=== PATIENT | female | born 1955 | race Caucasian/White ===

== ENCOUNTER → 2019-03-22 10:40 | Outpatient (CLI) | payer OTHER, SELFPAY ==
--- NOTE | 2019-03-22 | DI.MRI.S_ITS ---
PROCEDURE: MR KNEE RT WO CON INDICATIONS: RIGHT KNEE PAIN TECHNIQUE: Noncontrast sagittal PD fast spin echo and T2 fast spin echo with fat saturation, sagittal 3-D FLASH with fat saturation; coronal T1 spin echo and PD fast spin echo with fat saturation, and axial PD fast spin echo with fat saturation through the knee. COMPARISON: [facility] Naveed, MR, MR DANIELLEAIRKeira RT KNEE, 09/01/2018, 9:52. [facility] [place]ra [place], CR, XR KNEE ARTHRITIC SERIES BI, 03/08/2019, 16:09. FINDINGS: Image quality: Excellent. Menisci: Medial extrusion of the medial meniscus is present. Linear and amorphous high signal intensity traverses the anterior and posterior horns of the medial meniscus, demonstrating superior and inferior articular surface extension, as before, indicating complex tearing. Previously seen linear high signal intensity within the anterior horn lateral meniscus is not well-seen on the current examination. Perimeniscal cyst at the anterior aspect of the lateral meniscus is unchanged. Cruciate ligaments: Moderate T2 signal elevation within the anterior and posterior cruciate ligaments is unchanged. Medial structures: The medial collateral ligament appears intact. Visualized portions of the pes anserinus tendons appear normal. No abnormal bursal fluid. Lateral structures: The lateral collateral ligament, long and short heads of the biceps femoris tendon appear intact. The popliteus tendon appears normal. Iliotibial band appears normal. Anterior structures: The quadriceps and patellar tendons appear intact. Patellar alignment is normal. No femoral trochlear dysplasia or ventral trochlear prominence. Moderate edema in the infrapatellar fat pad. Bones and cartilage: No bone marrow contusions or fractures. There is moderate tricompartmental periarticular osteophyte formation, as before. Subchondral degenerative marrow edema and subchondral cyst formation within the weightbearing aspects of the medial femoral condyle and medial tibial plateau is unchanged. Severe diffuse articular cartilage loss overlies the weightbearing aspects of the medial femoral condyle and medial tibial plateau. Mild diffuse articular cartilage loss overlies the medial and lateral patellar facets. Joint space: There is a moderate knee joint effusion and a trace Negrete's cyst. Normal appearing synovial plicae are incidentally noted. IMPRESSION: 1. Tricompartment osteoarthritis with associated articular cartilage loss. 2. Complex tearing and extrusion of the medial meniscus. 3. Previously seen anterior horn lateral meniscal tearing is not well-seen on the current examination. However, there is a persistent adjacent perimeniscal cyst, suggestive of an occult underlying tear. 4. Partial-thickness tears of the anterior and posterior cruciate ligaments. 5. Knee joint effusion and Negrete's cyst. Dictated by: Judy Jewell M.D. on 03/22/2019 at 11:04 Approved by: Judy Jewell M.D. on 03/22/2019 at 11:12
== END ==
PROVIDERS: PCP Nurse Practitioner Family; Visit Provider Orthopaedic Surgery
DX: M25.561 Pain in right knee (principal); M17.11 Unilateral primary osteoarthritis, right knee; S83.231A Complex tear of medial meniscus, current injury, right knee, initial encounter; S83.511A Sprain of anterior cruciate ligament of right knee, initial encounter; S83.521A Sprain of posterior cruciate ligament of right knee, initial encounter; M25.461 Effusion, right knee; M71.21 Synovial cyst of popliteal space [Baker], right knee
CPT/HCPCS: 73721

== ENCOUNTER → 2019-05-10 12:06 | Outpatient (CLI) | payer OTHER, SELFPAY ==
[2019-05-10 12:43] LABS: Mean Corpuscular HGB Conc 34.1 % (30-36); Mean Corpuscular Hemoglobin 30.8 PG (26-34); Mean Corpuscular Volume 90.5 fL (80-100); Platelet Count 201 X10^3/uL (150-400); Red Blood Cell Count 4.53 X10^6/uL (4.0-5.2); White Blood Cell Count 4.7 X10^3/uL (4.5-11.0)
[2019-05-10 12:56] LABS: Hemoglobin A1C% w Est Avg Glu 5.3 % (4.0-6.0)
[2019-05-10 13:10] LABS: Appearance Urine UA CLEAR; Bilirubin Urine UA NEGATIVE (NEGATIVE); Color Urine UA YELLOW; Glucose Urine UA NEGATIVE (Negative); Ketones Urine UA NEGATIVE (NEGATIVE); Leukocyte Esterase Urine UA 1+ (NEGATIVE); Nitrite Urine UA POSITIVE (Negative); Occult Blood Urine UA TRACE-INTACT (Negative); Protein Urine UA NEGATIVE (Negative); Urobilinogen Urine UA 0.2 E.U./dL (0.2)
[2019-05-10 13:17] LABS: Bacteria Urine Many (>30); Calcium Oxalate Crystals Urine Few; RBC Urine 5-10/HPF (0-5/HPF); Squamous Epithelial Cell Urine 1-5 /HPF (0-5/HPF); WBC Urine 10-30/HPF (0-5/HPF)
[2019-05-10 13:32] LABS: BUN Creatinine Ratio 28.3 (6-22); Blood Urea Nitrogen 17 mg/dL (7-17); Calcium 9.7 mg/dL (8.4-10.2); Carbon Dioxide 22 mmol/L (22-32); Chloride 106 mmol/L (98-107); Estimated Glomerular Filt Rate > 60.0 mL/min (>60); Glucose 129 mg/dL (80-110); HEMOLYSIS < 15 (0-50); Potassium 4.3 mmol/L (3.4-5.1); Sodium 140 mmol/L (137-145)
== END ==
PROVIDERS: Family Provider Nurse Practitioner Family; PCP Nurse Practitioner Family; Visit Provider Orthopaedic Surgery
DX: N39.0 Urinary tract infection, site not specified (principal); R73.9 Hyperglycemia, unspecified; Z01.818 Encounter for other preprocedural examination
CPT/HCPCS: 36415; 80048; 81001; 83036; 85027; 93005; 93010

== ENCOUNTER 2019-06-09 14:33 | Observation (INO) | payer OTHER, SELFPAY ==
[2019-05-29 14:03] VITALS: BMI 32.0
[2019-06-08] VITALS (18 sets, daily range): BP systolic 101–148; BP diastolic 59–81; PULSE 56–80; RESP 10–16; TEMP 36–36.7; O2SAT 90–99; BMI 32.0
--- NOTE | 2019-06-08 06:00 | DI.RAD.S_ITS ---
PROCEDURE: XR KNEE RT 1TO2V INDICATIONS: total knee post operative TECHNIQUE: 2 view(s) of the knee acquired. COMPARISON: None. FINDINGS: Bones: Patient is status post knee joint arthroplasty. Hardware components are in expected positions. Visualized bony structures are intact. Soft tissues: Overlying postoperative changes are noted. IMPRESSION: Right knee total arthroplasty with prosthesis in anatomic alignment. Dictated by: Brayan Tirado M.D. on 06/08/2019 at 17:14 Approved by: Brayan Tirado M.D. on 06/08/2019 at 17:14
[2019-06-08] MEDS: LACTATED RINGERS 1,000 ML 42 ML IV ×3 (09:20→13:07)
[2019-06-08] MEDS: VANCOMYCIN 1,000 MG/200 ML PIGGYBACK 200 MG IV (09:28)
[2019-06-08] MEDS: PREGABALIN 75 MG CAPSULE PO (09:32)
[2019-06-08] MEDS: ACETAMINOPHEN 325 MG TABLET 975 MG PO ×3 (09:32→20:52)
[2019-06-08] MEDS: CELECOXIB 200 MG CAPSULE PO (09:32)
--- NOTE | 2019-06-08 10:36 | PM.PREOP ---
Pre-operative Note Interval Note History & Physical reviewed/Exam performed by Physician: Yes Changes to H&P: No
--- NOTE | 2019-06-08 10:36 | PM.OP.1 ---
Operative Date/Time/Diagnoses Date of procedure: 06/08/19 Time of procedure: 10:55 Pre-op diagnosis: right knee OA Post-op diagnosis: same Procedure & Clinicians Procedure: Right total knee arthroplasty Same procedure as scheduled: Yes Indications: The patient has had progressively worsening right knee pain with radiographic changes consistent with arthritis. Non-operative management has failed and the patient has requested total knee replacement. The risks, benefits and alternatives to surgery were discussed with the patient prior to proceeding. Risks discussed included, but were not limited to, failure to relieve pain, stiffness, infection, nerve damage, deep venous thrombosis, pulmonary embolism, stroke, coma, heart attack, permanent paralysis and , as well as the potential need for eventual revision of the prosthetic. Surgeon: Patito Yañez Impregnator Electrolytic Capacitors: Eve Cole Anesthesia Type: General and Spinal Operative Notes Findings: Severe right knee osteoarthritis, adequate stability Closure Type: primary Prosthetic devices, grafts, tissues, transplants, or devices: Yañez and Nephew Journey BCS 2 size 2 femur, 1 tibia, +9 poly, patella 32 by 7.5 Applied: drain(s) Estimated Blood Loss (mL): 250 Blood products transfused: none Tourniquet time (min): 87 Procedure in detail: The patient was seen in the pre-operative area, where the patient identified the right knee as the operative site and this was marked with my initials. The patient received pre-operative antibiotics, and was taken to the operating room and placed on the operative table in the supine position. After satisfactory anesthesia, a full stack net developer out was performed. The right leg was encircled with a tourniquet about the proximal thigh, and the leg was prepared from the toes to the tourniquet with ChloroPrep in the usual fashion and draped through sterile drapes. The leg was elevated and exsanguinated with Eschmark bandage and the tourniquet inflated to [250] mmHg pressure. The knee was approached through an approximately 18 cm incision centered over the patella and carried into the knee through a medial parapatellar arthrotomy. A portion of the medial and lateral meniscus was resected. Soft tissue was carefully mobilized around the patella the patella was measured with a caliper. Bone was resected from the patella and the patellar height was reconstituted with up an appropriate sized patellar component. A cover was then placed on the patella. A small amount of additional medial and lateral meniscus was resected. The visionare guide fit well to the distal femur. It looked like an appropriate distal femoral cut and the cut was made without difficulty. The rotation was assessed and the appropriate size femoral guide was placed on the distal femur and finishing cuts were made. There is no evidence of notching. The anterior, posterior and chamfer cuts were then made. The posterior osteophytes and soft tissues were then removed. The posterior capsule was injected with part of a mixture of 60 ml 0.25% Marcaine mixed with 20 ml Exparel for post operative pain control. The remainder of this mixture was injected into the capsule and subcutaneous tissues during cement curing. The tibia was prepared and the visionaire guide fit well to the distal tibia. The rotation was assessed. The patient was placed in extension residual medial and lateral meniscus as well as any residual bone was carefully resected. [No] additional tibia was resected. Hemostasis was achieved especially posteriorly. Additional local was injected into the posterior capsule. The extension gap was assessed and additional releases for gap balancing were performed as necessary. It was checked with the gap lab rep. The femoral component was trial was placed and the notch was finished. Trial tibial and femoral components were then placed and the knee placed through a range of motion. Range of motion was [0-130], with good stability throughout the range. The trials were then removed, and the tibia was finished. She had a a very small canal on the tibia and it was drilled and punched with care. The bone was prepared with pulsatile lavage, and dried with a sponge. Cement was applied and the final prosthetics placed. Excess cement was removed during and after cement curing. A brief Betadine soak was performed. After confirming there was no extruded cement posteriorly, the final tibial insert was placed. The knee was copiously irrigated and the tourniquet deflated. Hemostasis was obtained with the Bovie. A drain was placed and brought out superolaterally. The capsule was closed with interrupted Vicryl suture. The subcutaneous layer was closed with barbed sutures, and the skin with a running 3-0 V-Lock suture and Surgical glue. An Aquacel Ag dressing was applied and the patient was taken to recovery having tolerated the procedure well. Complications: none Post-operative Condition: stable Disposition: Acute Care Plan for aftercare: The patient will be maintained on a standard total knee replacement protocol with weight bearing as tolerated. The patient will receive Lovenox and sequential compression devices for DVT prophylaxis. The patient will be discharged home when safe for the home environment.
[2019-06-08] MEDS: CEFAZOLIN 2 GM/100 ML FROZ.PIGGY IV ×2 (10:55→19:18)
--- NOTE | 2019-06-08 11:31 | SUR.OPER ---
Supine on padded OR bed. Pillow under head, arms secured on padded armboards <90 degree abduction. Safety belt across torso. Non-operative leg secured with tape over blanket over lower leg. Operative leg secured in DeMayo/Anthony positioner. Foam padded brace at thigh of operative leg.
[2019-06-08] MEDS: BUPIVACAINE LIPOSOME 266 MG/20 ML VIAL INJ (11:40)
[2019-06-08] MEDS: BUPIVACAINE 0.25% W/ EPI 30 ML VIAL 60 ML INJ (11:40)
[2019-06-08] MEDS: HYDROMORPHONE 2 MG INJ 0.25 MG IV ×3 (13:53→14:14)
--- NOTE | 2019-06-08 13:56 | SUR.PHASEI ---
Unclamp HV [address] Yañez.
--- NOTE | 2019-06-08 14:01 | SUR.PHASEI ---
Pt rated pain 9-10/10 and then fell asleep.
--- NOTE | 2019-06-08 14:39 | SUR.PHASEI ---
Report called to Giorgio.
--- NOTE | 2019-06-08 15:41 | PC.NURSE ---
Patient arrived just prior to change of shift, settled into bed, oriented to room and call light. VSS. Tolerating ice chips. Right knee with DEBRA and Aquacel CDI, patient with good pulses bilaterally. Bed alarm activated, call light within reach.
[2019-06-08] MEDS: ONDANSETRON 4 MG/2 ML INJ IV ×2 (16:16→21:03)
[2019-06-08] MEDS: LACTATED RINGERS 1,000 ML 125 ML IV (16:16)
[2019-06-08] MEDS: OXYCODONE IR 5 MG TABLET PO ×2 (17:48→20:54)
[2019-06-08] MEDS: LOVASTATIN 20 MG TABLET PO (18:15)
[2019-06-08] MEDS: DOCUSATE 100 MG CAPSULE PO (20:53)
[2019-06-08] MEDS: FLUoxetine 20 MG CAPSULE PO (20:53)
[2019-06-08] MEDS: ASPIRIN EC 81 MG TABLET PO (20:53)
[2019-06-08] MEDS: CYCLOBENZAPRINE 10 MG TABLET 5 MG PO (20:54)
[2019-06-09] VITALS (9 sets, daily range): BP systolic 96–152; BP diastolic 58–80; PULSE 59–86; RESP 16–20; TEMP 36.2–36.9; O2SAT 88–97
[2019-06-09] MEDS: LACTATED RINGERS 1,000 ML 125 ML IV (00:14)
--- NOTE | 2019-06-09 00:21 | PC.NURSE ---
Addendum entered by Kizzy Willard R.N. 06/09/19 02:21: Complains of 6/10 sharp right knee/thigh pain; medicated with Oxycodone. Original Note: Patient is alert and oriented. Breath sounds diminished but CTA with RA sat of 94%; on continuous oximetry. HRR but with low BP of 97/63; asymptomatic. Still with slight nausea but declines need for antiemetic. BT hypoactive; denies flatus. Up to BSC with 1 assist + walker; weak on right LE. Aquacel + jose wrap to right knee is CDI. Hemovac is compressed and intact. CMS intact bilaterally. Wearing calf SCD's. Denies pain but complains of stiffness; ice pack applied. Fall risk score is moderate; reports tripping but last fall in October. Bed alarm is activated and patient reminded to call for assistance prior to getting up.
[2019-06-09] MEDS: OXYCODONE IR 5 MG TABLET PO ×4 (02:18→12:27)
[2019-06-09] MEDS: CEFAZOLIN 2 GM/100 ML FROZ.PIGGY IV (02:21)
[2019-06-09 07:08] LABS: Hematocrit 33.1 % (36-46); Hemoglobin 11.6 g/dL (12.0-16.0)
[2019-06-09] MEDS: FLUoxetine 20 MG CAPSULE 40 MG PO (08:12)
[2019-06-09] MEDS: DOCUSATE 100 MG CAPSULE PO ×2 (08:12→20:02)
[2019-06-09] MEDS: PANTOPRAZOLE 20 MG TABLET PO (08:12)
[2019-06-09] MEDS: ACETAMINOPHEN 325 MG TABLET 975 MG PO ×3 (08:12→20:02)
[2019-06-09] MEDS: ASPIRIN EC 81 MG TABLET PO ×2 (08:59→20:01)
--- NOTE | 2019-06-09 09:12 | PM.PNPO.1 ---
Subjective Subjective Date Patient Seen: 06/09/19 Time Patient Seen: 09:12 Interval history: Hospital day 2, postop day 1 following right total knee arthroplasty by Dr. Yañez. She has remained stable postoperatively. She did have some nausea last night but that has resolved. She has not had any physical therapy yet. Hemovac in place with 70 mL discharge past 8 hours. She is a [facility] patient and has prescriptions at home for oxycodone and Vistaril. She is scheduled go to [facility]. Patient lives in a single wide mobile home with her . She is concerned about how much help her will be to her when she gets home. She also has a caregiver for her elderly mother and a disabled daughter who live in separate housing. Exam Vital Signs (past 8 hours): - 06/09/19 05:30 06/09/19 08:32 Temperature 97.4 F L 97.9 F Pulse Rate 66 75 Respiratory Rate 16 18 Blood Pressure 128/58 L 120/67 Pulse Oximetry 97 95 Oxygen Delivery Method Room Air Oxygen Flow Rate 0 Narrative Exam Narrative: Alert, oriented no acute distress lying in bed. Legs. Faustino wrap an Aquacel dressing to right knee is dry without drainage or inflammation. Hemovac in place. No calf pain or swelling. Pulses symmetrical. Patient also seen by Dr. Yañez during rounds this morning. Objective Labs Result Diagrams: 06/09/19 06:45 Labs: Laboratory Results - last 24 hr 06/09/19 06:45 Hgb 11.6 L Hct 33.1 L Assessment & Plan Post-op Postoperative Procedures: Procedures Operation Date: 06/08/19 10:45 Actual Procedures Side Surgeon p Total Knee Arthroplasty Patito Yañez MD Plan: After further discussion with the patient it was decided that we would have her stay in the hospital today for further recovery and physical therapy before going home. Will try to have her come in to work with PT. Anticipate discharge home tomorrow if she is stable and cleared by PT.
--- NOTE | 2019-06-09 10:02 | PT.IIE ---
Current Diagnoses Unilateral primary osteoarthritis, right knee (06/08/19) Surgery Performed Operation Date: 06/08/19 10:45 Actual Procedures p Total Knee Arthroplasty - Patito Yañez MD Surgical History (Last Updated 05/29/19 @ 14:23 by Tabitha Perez, RN) History of bunionectomy of left great toe (Acute) History of section (Acute) Hx of appendectomy (Acute) Hx of arthroscopy of right knee (Acute) Hx of cholecystectomy (Acute ~1998) Hx of tonsillectomy (Acute) S/P thyroid biopsy (Acute ~2015) Status post trigger finger release (Acute) Medical History (Last Updated 05/29/19 @ 14:23 by Tabitha Perez RN) Anxiety (Acute) Arthritis (Acute) Enlarged thyroid (Acute ~2015) GERD (gastroesophageal reflux disease) (Acute) H/O: hysterectomy (Acute) Hammertoe of left foot (Acute) HLD (hyperlipidemia) (Acute) Kidney stones (Acute) Numbness (Acute) Pneumonia (Acute) Physical Therapy Inpatient Evaluation/Re-Eval M1 PT/OT-IP Prior Functional Status Start: 06/09/19 12:19 Freq: NEEDED Status: Active Protocol: Document 06/09/19 10:02 AB (Rec: 06/09/19 12:33 AB [email or web address]) Medical Review Prior Functional Status Medical History Reviewed Yes Communication able to make needs known Mobility and Gait pt stated that she is independent with all mobilities and ambulation without AD Social History Household Members spouse Living Arrangements Mobile home Number of Floors (Floors) One Floor Number of Stairs To Enter/Railing? 6 steps to enter with R rail ascending Home Environment Standard Height Toilet,Tub/ Shower Home Equipment Front Wheel Walker,Shower Seat without Backrest,Hand Held Shower Additional Social History Comment pt also has a hurrycane M2 PT-IP Current Condition Start: 06/09/19 12:19 Freq: NEEDED Status: Active Protocol: Document 06/09/19 10:02 AB (Rec: 06/09/19 12:33 AB [email or web address]) Physical Therapy Current Condition Current Condition Evaluation Date 06/09/19 Treatment Diagnosis s/p R TKA; difficulty in walking Onset Date 06/08/19 Weight Bearing Status Weight Bearing Status Weight Bear as Tolerated M3 PT-IP Subjective Start: 09/06/19 12:19 Freq: NEEDED Status: Active Protocol: Document 06/09/19 10:02 AB (Rec: 06/09/19 12:33 AB [email or web address]) Subjective Physical Therapy Visit Type Type Initial Evaluation Visit Start Time 10:02 Visit Stop Time 10:38 Total Visit Minutes 36 Number of LEAD EMBEDDED SOFTWARE ENGINEER Visits 0 Physical Therapy Visit Comments Patient Comments pt agreeable to do PT Therapy Pain Assessment Pain When Pain Assessed At Rest Pain Present Pain Present Pain Reported Location Back Intensity 4 Scale Used Numeric (1 - 10) Pain Management Techniques Apply Cold,Re-positioning, Timing of Activity with Medications M4 PT-IP Mobility and Gait Start: 06/09/19 12:19 Freq: NEEDED Status: Active Protocol: Document 06/09/19 10:02 AB (Rec: 06/09/19 12:33 AB [email or web address]) PT-Bed Mobility Assessment Supine to Sit Supine to Sit Standby Assistance PT-Transfer Assessment Sit to and From Stand Sit to and from Stand Contact Guard Assistance,1 Person Assistance,Use of Upper Extremities Equipment Transfer Assistive Device Gait Belt,Front Wheeled Walker Orthotic/Prosthetic Devices or Brace: No Transfers Transfer Destination Toilet Transfer Technique pt ambulated using FWW Transfer Ability Level of Assist Contact Guard Assistance,1 Person Assistance,Use of Upper Extremities Comments Mobility Comments pt ambulated to the toilet using FWW CGA. pt agreed to sit up on chair. refused further ambulation . positioned on chair. call light and table placed within reach. Gait Assessment Gait Gait Assistance Required: Contact Guard Assist Distance (Feet) 20 Able to Maintain Weight Bearing Status Yes During Gait Assistive Devices Assistive Device Gait Belt,Front Wheeled Walker Orthotic/Prosthetic Devices or Brace: No Gait Deviations General Gait Pattern Antalgic,Decreased Stride Length,Decreased Feet Clearance,Step-to Gait Factors Limiting Gait Function Factors Limiting Gait Function Decreased Activity Tolerance, Decreased Strength,Limited Range of Motion,Pain,Poor Balance,Poor Safety Awareness Comments Gait Comments pt completed ambulation using FWW ~ 20 ft requiring CGA and cues. pt presents with antalgic gait and has decrease activity tolerance and unable to do farther ambulation after using the toilet. pt requested to do stairs in the afternoon. PT-Balance Assessment Sitting Balance and Reactions Static Sitting Balance Ability Good Dynamic Sitting Balance Ability Good Standing Balance and Reactions Static Standing Balance Ability Fair Dynamic Standing Balance Ability Fair Device Used FWW M5 PT-IP Objective Assessments Start: 06/09/19 12:19 Freq: NEEDED Status: Active Protocol: Document 06/09/19 10:02 AB (Rec: 06/09/19 12:33 AB [email or web address]) Orientation Orientation/Cognition Level of Alertness Alert Orientation Name,Place,Situation Language Function Ability Hard of Hearing Safety Awareness Decreased Safety Awareness Memory Description Short Term Impaired Gross Range of Motion Lower Extremity ROM Assessment Right Impaired Impairments R knee flexion 90 de R knee extension lacking 15 deg to O Strength Lower Extremity Strength Assessment Right Impaired Knee 3+/5 Sensation Assessment Sensation Gross Sensation WNL Muscle Tone Muscle Tone WNL Yes M6 PT-IP Treatment Start: 06/09/19 12:19 Freq: NEEDED Status: Active Protocol: Document 06/09/19 10:02 AB (Rec: 06/09/19 12:33 AB [email or web address]) Physical Therapy Treatment Exercises Exercises Quad Sets,Heel Slides Education Education Provided Precautions,Weight Bearing Status,Post-Op Packet,Safety M7 PT-IP Assessment and Plan Start: 06/09/19 12:19 Freq: NEEDED Status: Active Protocol: Document 06/09/19 10:02 AB (Rec: 06/09/19 12:33 AB [email or web address]) PT Summary Assessment and Plan Potential Rehabilitation Potential Good Status of Condition at Evaluation Stable Summary Impairments Pain,ROM,Strength,Balance, Coordination,Sensation,Tone, Cognition,Bed Mobility, Transfers,Gait,Activity Tolerance Assessment Summary pt requiring CGA with mobility but presents with decrerase activity tolerance and c/o pain with mobility affecting function. d/c plan depends on progress. stated that spouse will be able to assist but is limited due to spouse's decrease cognitive/memory. will conducted caregiver training when appropriate and will also complete stair climbing training prior to d/c . Goals Bed Mobility Goal Independent Transfer Goal Independent,Front Wheeled Walker Gait Goal Independent,Front Wheel Walker Gait Distance 200 Other Goals up/down 6 steps with R rail ascending SBA Days to Meet Goals 5 Frequency of Treatment Frequency Of Treatment Twice a Day Treatment Plan Physical Therapy Treatment Plan Bed Mobility Training,Transfer Training,Gait Training, Therapeutic Exercise,Balance Retraining,Post Op Education, Discharge Planning,Hot or Cold Pack,Neuromuscular Re-ed, Coordination Retraining,Manual Therapy Other Recommendations and Next Treatment ambulation, stair climbing Focus Recommendations To Nursing Amount of Assist Needed 1 Person Assist Discharge Recommendations PT Discharge Recommendations Home with Assistance, Outpatient PT
--- NOTE | 2019-06-09 14:19 | CM.DPNOTE ---
Initial discharge planning note: GREY GOODS EXAMINER reviewed chart and met with patient. PCP: Meri Blackman. Payor:mattie Pal of [facility]. Medicare Advantage. Pt found to be alert, oriented and comfortable. Current d/c plan is for her to spend one more night inpt, due to further recovery and more PT. She has a solid plan in place at home to ensure that she will be able to manage her care needs. If she finds that her spouse need's additional support, she already has 2-caregivers in mind that she can call. No DME needs, [facility] is already lined up for continued outpatient based therapy. No further needs identified at this time Discharge Planning/Care Management CM Discharge Assessment Start: 06/09/19 14:04 Freq: Status: Active Protocol: Document 06/09/19 14:05 DPL (Rec: 06/09/19 14:12 DPL [id number]) Discharge Planning Assessment Assigned Coal Pipeline Operator Aishwarya Wayne/Kalyn Peacock DPOA/Assigned Designee Name Pt designates her spouse, Kevin, as surrogate decision- maker. Advance Directives? No Advance Directives on File No History Provided By Patient Expected Length of Stay 2 Has Patient been admitted in last 30 No days? Prior Living Arrangements Mobile home Comment Pt resides w/. Her disabled dtr and elderly mother live in a separate dwelling, however patient is responsible for coordination and monitoring of their daily care needs. She shared that she was able to get increased hours through [employer] for both of them in anticipation of her need to heal from this knee surgery. Household Members spouse Type of transporation used prior to Drives own vehicle admit Independent with ADL's Yes Is patient alert and oriented? Yes Needs Assistance With Meal Prep,Home Chores / Shopping Comment Pt states that her spouse will be able to assist with her care needs at home with direction from her. She has a few caregivers in mind should she decide that she need's more help. Caregiver for Another Yes Comment N/A Comment N/A Patient/Family Preference OP PT Therapy Comment PT assessment recommends d/c home with assistance, outpatient PT. She has already been referred to [facility] . Barriers to Discharge No Discharge Plan Home Transportation Arrangement Spouse will plan to drive patient home. Pre-Anesthesia Assessment Start: 05/29/19 14:03 Freq: Status: Complete Protocol: Document 05/29/19 14:03 CAB (Rec: 05/29/19 14:44 [facility] [id number]) Pre-Anesthesia Assessment Patient Information Reviewed Via Phone Assessment Assessment Completed With Patient Diagnostic Results BMP/CMP,CBC,EKG Comment Labs/EKG @ 05/10/19 Prior EKG '18 scanned for comparison Primary Care Provider Meri Blackman Seen Specialist in Last 12 Months Yes Specialist Seen Orthopedist,Urologist Comment Last PCP note 09/05/18 scanned to record Primary Language [place] Order Processing Clerk Required No Height 144.78 cm Weight 67.132 kg Body Mass Index (BMI) 32.0 Hearing Ability Normal Visual Assist Glasses Dentition Type Partial- Upper Barriers to Learning None Other Aids No Hx Anesthesia Reactions No Hx Family Anesthesia Reaction No Hx Malignant Hyperthermia No Hx Blood Transfusions No Anesthesia Review Requested No alcohol intake never Smoking Status Never smoker Substance Use Type does not use Pain Present Pain Reported Musculoskeletal Symptoms Abnormal Gait,Difficulty Walking,Joint Pain,Muscle Cramps,Muscle Weakness, Numbness History of Falling (Recent or History of Yes ) Patient is completely paralyzed or No completely immobile Mental Status Oriented to own ability Is patient on oxygen? No Does patient have MANUEL/SOB Yes: With over exertion Hx Sleep Apnea No Currently Taking a Beta Henny No Hx Chest Pain No Hx SOB Yes: With over exertion Hx Syncope or Dizziness No Anti-Coagulant Therapy No Has a Classified Copy Control Clerk No Cardiac Testing Yes: Stress test 09/21/18 negative for ischemia Hx Pacemaker/ICD No Pacemaker Rep Required? No Cardiac Clearance Received Not Applicable Diet Type At Home Regular dysphagia No Bladder Pattern Incontinent, Stress Urinary Catheter Present No Hx Urinary Self Catheterization No Diabetes No HgbA1C 5.3 Date 05/10/19 Patient No Lactating No Hx Drug Resistant Organism No Presence of External or Internal Medical No Devices Have you traveled outside the [facility] States in the last 30 days? Marital Status Lives With spouse Prior Living Arrangements Mobile home Number of Floors (Floors) One Floor Support System Spouse Does the Patient Have Assistance After Yes Surgery Patient Discharge Plan Description Return Home Comment Pt advised overnight length of stay per surgeon Feels Safe in Current Environment Yes Been Physically Hurt or Threatened By a No Person in Current Environment Do you have thoughts of harming yourself None or others? Are you currently considering suicide? No Do you have a plan to hurt yourself or No Plan others? Do You Have Any Spiritual Beliefs That No May Affect Your HC Choices? Do You Have Any Cultural Practices That No May Affect Your HC Choices? Comment Jewish Who Can We Speak to About Patient's Care Family, friends Identifying Code for Release of Patient Declines to isuse Information Health Care Proxy/Next of Kin Uma (sister) Health Care Proxy Emergency Contact Name Kevin () Emergency Contact Advance Directives? No: Declines further information, has paperwork at home Advance Directives on File No Requested Patient Bring Advanced Yes Directives DOS Power of Supreme Court Justice No PAC Instructions Do not shave/clip surgical site,Durable medical equipment ,Medications to take/avoid, Nasal antibiotic,No ETOH/ petroleum product on skin DOS, NPO,Pre-surgical wash,Sturdy shoes/comfortable clothes,Do not bring valuables and remove jewelry
--- NOTE | 2019-06-09 14:50 | PT.IPTN ---
Current Diagnoses Unilateral primary osteoarthritis, right knee (06/08/19) Surgery Performed Operation Date: 06/08/19 10:45 Actual Procedures p Total Knee Arthroplasty - Patito Yañez MD Physical Therapy Treatment Note M2 PT-IP Current Condition Start: 06/09/19 12:19 Freq: NEEDED Status: Active Protocol: Document 06/09/19 10:02 AB (Rec: 06/09/19 12:33 AB [email or web address]) Physical Therapy Current Condition Current Condition Evaluation Date 06/09/19 Treatment Diagnosis s/p R TKA; difficulty in walking Onset Date 06/08/19 Weight Bearing Status Weight Bearing Status Weight Bear as Tolerated M3 PT-IP Subjective Start: 06/09/19 12:19 Freq: NEEDED Status: Active Protocol: Document 06/09/19 14:50 AB (Rec: 06/09/19 16:41 AB [email or web address]) Subjective Physical Therapy Visit Type Type Treatment Note Visit Start Time 14:50 Visit Stop Time 15:05 Total Visit Minutes 15 Number of CONSTRUCTION RECRUITER Visits 0 Physical Therapy Visit Comments Patient Comments pt agreeable to do PT Therapy Pain Assessment Pain When Pain Assessed At Rest Pain Present Pain Present Pain Reported Location Back Intensity 6 Scale Used Numeric (1 - 10) Pain Management Techniques Apply Cold,Re-positioning, Timing of Activity with Medications M4 PT-IP Mobility and Gait Start: 06/09/19 12:19 Freq: NEEDED Status: Active Protocol: Document 06/09/19 14:50 AB (Rec: 06/09/19 16:41 AB [email or web address]) PT-Bed Mobility Assessment Sit to Supine Sit to Supine Standby Assistance PT-Transfer Assessment Sit to and From Stand Sit to and from Stand Contact Guard Assistance Equipment Transfer Assistive Device Gait Belt,Front Wheeled Walker Transfers Transfer Destination Bed Transfer Technique pt ambulated using FWW Transfer Ability Level of Assist Contact Guard Assistance, Minimal Assistance Comments Mobility Comments pt sitting on chair and agreed to do ambulation but requested to go back to bed afterwards. pt completed sit to stand from the chair CGA and completed ambulation using FWW ~ 50 ft CGA to min A and cues. pt walked back to the room towards the bed and completed sit to supine SBA. positioned pt in bed. call light and table placed within reach. Gait Assessment Gait Gait Assistance Required: Contact Guard Assist,Minimum Assistance Distance (Feet) 50 Able to Maintain Weight Bearing Status Yes During Gait Assistive Devices Assistive Device Gait Belt,Front Wheeled Walker Orthotic/Prosthetic Devices or Brace: No Gait Deviations General Gait Pattern Antalgic,Decreased Stride Length,Decreased Feet Clearance Factors Limiting Gait Function Factors Limiting Gait Function Decreased Activity Tolerance, Decreased Strength,Limited Range of Motion,Pain,Poor Balance Stair Climbing Assessment Comments Stair Climbing Comments pt refused to do stair training today stating that she is not ready but agreed to do it tomorrow. M5 PT-IP Objective Assessments Start: 06/09/19 12:19 Freq: NEEDED Status: Active Protocol: Document 06/09/19 10:02 AB (Rec: 06/09/19 12:33 AB [email or web address]) Orientation Orientation/Cognition Level of Alertness Alert Orientation Name,Place,Situation Language Function Ability Hard of Hearing Safety Awareness Decreased Safety Awareness Memory Description Short Term Impaired Gross Range of Motion Lower Extremity ROM Assessment Right Impaired Impairments R knee flexion 90 de R knee extension lacking 15 deg to O Strength Lower Extremity Strength Assessment Right Impaired Knee 3+/5 Sensation Assessment Sensation Gross Sensation WNL Muscle Tone Muscle Tone WNL Yes M6 PT-IP Treatment Start: 06/09/19 12:19 Freq: NEEDED Status: Active Protocol: Document 06/09/19 10:02 AB (Rec: 06/09/19 12:33 AB [email or web address]) Physical Therapy Treatment Exercises Exercises Quad Sets,Heel Slides Education Education Provided Precautions,Weight Bearing Status,Post-Op Packet,Safety M7 PT-IP Assessment and Plan Start: 06/09/19 12:19 Freq: NEEDED Status: Active Protocol: Document 06/09/19 14:50 AB (Rec: 06/09/19 16:41 AB [email or web address]) PT Summary Assessment and Plan Potential Rehabilitation Potential Good Summary Impairments Pain,ROM,Strength,Balance, Coordination,Bed Mobility, Transfers,Gait,Activity Tolerance Progress Towards Goals Slow Progress due to Pain,Slow Progress due to Activity Tolerance Assessment Summary pt requiring CGA to min A with mobility but continues to have decrease activity tolerance with c/o increase knee pain. pt plans to go home with spouse to assist her . will conduct caregiver training when appropriate and will also complete stair training. Goals Bed Mobility Goal Independent Transfer Goal Independent,Front Wheeled Walker Gait Goal Independent,Front Wheel Walker Gait Distance 200 Other Goals up/down 6 steps with R rail ascending SBA Days to Meet Goals 5 Frequency of Treatment Frequency Of Treatment Twice a Day Treatment Plan Physical Therapy Treatment Plan Bed Mobility Training,Transfer Training,Gait Training, Therapeutic Exercise,Balance Retraining,Post Op Education, Discharge Planning,Hot or Cold Pack,Neuromuscular Re-ed, Coordination Retraining,Manual Therapy Other Recommendations and Next Treatment ambulation, stair climbing Focus Recommendations To Nursing Amount of Assist Needed 1 Person Assist Discharge Recommendations PT Discharge Recommendations Home with Assistance, Outpatient PT
[2019-06-09] MEDS: OXYCODONE IR 10 MG TABLET PO (16:20)
[2019-06-09] MEDS: LOVASTATIN 20 MG TABLET PO (17:56)
[2019-06-09] MEDS: HYDROMORPHONE 2 MG INJ IV (17:57)
[2019-06-09] MEDS: CYCLOBENZAPRINE 10 MG TABLET 5 MG PO (20:01)
[2019-06-09] MEDS: FLUoxetine 20 MG CAPSULE PO (22:54)
[2019-06-10] VITALS (7 sets, daily range): BP systolic 145–158; BP diastolic 83–88; PULSE 85–98; RESP 14–18; TEMP 36.6–37.2; O2SAT 94–100
[2019-06-10] MEDS: OXYCODONE IR 10 MG TABLET PO ×4 (03:32→20:16)
--- NOTE | 2019-06-10 04:11 | PC.NURSE ---
Pts hemovac is slightly out, air escaping. I placed tegaderm on the holes and tried to maintain suction. Working much better now. Re-wrapped and re-dressed site. New Kerlix applied. Pt was 88% on RA after receiving IV dilaudid a few hours prior. Placed on 2L NC and now at 95%. Pt is ambulating slow but well to the bathroom with FWW and 1p assist. Complained of 5/10 pain, Oxycodone 10mg given. bilateral SCDs on throughout night.
[2019-06-10] MEDS: ASPIRIN EC 81 MG TABLET PO ×2 (08:43→20:11)
[2019-06-10] MEDS: PANTOPRAZOLE 20 MG TABLET PO (08:43)
[2019-06-10] MEDS: FLUoxetine 20 MG CAPSULE 40 MG PO ×2 (08:44→20:12)
[2019-06-10] MEDS: DOCUSATE 100 MG CAPSULE PO ×2 (08:44→20:12)
[2019-06-10] MEDS: ACETAMINOPHEN 325 MG TABLET 975 MG PO ×3 (08:44→20:11)
--- NOTE | 2019-06-10 10:04 | P.PN_ITS ---
Subjective Subjective Date Patient Seen: 06/10/19 Time Patient Seen: 10:05 Interval history: Patient's pain is moderate to severe. Denies fever chills. No nausea vomiting. Patient's will be home to assist her however he still has needs to work. He will be working later tonight through marketing operations analyst. Otherwise without complaints. Exam Vital Signs (past 8 hours): - 06/10/19 03:30 06/10/19 08:50 06/10/19 08:59 Temperature 98.9 F 98.9 F Pulse Rate 85 95 H Respiratory Rate 14 18 Blood Pressure 149/83 H Pulse Oximetry 100 97 94 Fraction of Inspired Oxygen 21 Oxygen Delivery Method Room Air Oxygen Flow Rate 0 Narrative Exam Narrative: 64-year-old female resting in bed in no apparent distress. Right knee dressing is clean, dry and intact. Right leg is warm and dry. Motor functions intact distally. Sensation grossly intact to light touch. Objective Labs Result Diagrams: 06/09/19 06:45 Assessment & Plan Post-op Postoperative Procedures: Procedures Operation Date: 06/08/19 10:45 Actual Procedures Side Surgeon p Total Knee Arthroplasty Patito Yañez MD Postop day 2 status post right total knee arthroplasty. Patient has been slow to mobilize with physical therapy. She has limited assistance at home as her is still need to work. Patient to work with physical therapy working on lower extremity strength and mobility. Due to limited assistance at home will plan on discharge home tomorrow.
[2019-06-10] MEDS: ONDANSETRON 4 MG ODT PO (10:23)
--- NOTE | 2019-06-10 11:25 | PT.IPTN ---
Current Diagnoses Unilateral primary osteoarthritis, right knee (06/08/19) Surgery Performed Operation Date: 06/08/19 10:45 Actual Procedures p Total Knee Arthroplasty - Patito Yañez MD Physical Therapy Treatment Note M2 PT-IP Current Condition Start: 06/09/19 12:19 Freq: NEEDED Status: Active Protocol: Document 06/09/19 10:02 AB (Rec: 06/09/19 12:33 AB [email or web address]) Physical Therapy Current Condition Current Condition Evaluation Date 06/09/19 Treatment Diagnosis s/p R TKA; difficulty in walking Onset Date 06/08/19 Weight Bearing Status Weight Bearing Status Weight Bear as Tolerated M3 PT-IP Subjective Start: 06/09/19 12:19 Freq: NEEDED Status: Active Protocol: Document 06/10/19 11:25 GGD (Rec: 06/10/19 12:48 GGD [id number]) Subjective Physical Therapy Visit Type Type Treatment Note Visit Start Time 11:08 Visit Stop Time 11:24 Total Visit Minutes 16 Number of CORPORATE WELLNESS COORDINATOR Visits 1 Physical Therapy Visit Comments Patient Comments PT willing to work with therapy. Therapy Pain Assessment Location Back Intensity 5 Scale Used Numeric (1 - 10) M4 PT-IP Mobility and Gait Start: 06/09/19 12:19 Freq: NEEDED Status: Active Protocol: Document 06/10/19 11:25 GGD (Rec: 06/10/19 12:48 GGD [id number]) PT-Transfer Assessment Sit to and From Stand Sit to and from Stand Contact Guard Assistance Equipment Transfer Assistive Device Gait Belt,Front Wheeled Walker Transfers Transfer Destination Chair Transfer Ability Level of Assist Contact Guard Assistance, Minimal Assistance Gait Assessment Gait Gait Assistance Required: Contact Guard Assist Distance (Feet) 60 Able to Maintain Weight Bearing Status Yes During Gait Assistive Devices Assistive Device Gait Belt,Front Wheeled Walker Orthotic/Prosthetic Devices or Brace: No Gait Deviations General Gait Pattern Antalgic,Decreased Stride Length,Decreased Feet Clearance Factors Limiting Gait Function Factors Limiting Gait Function Decreased Activity Tolerance, Decreased Strength,Limited Range of Motion,Pain,Poor Balance M5 PT-IP Objective Assessments Start: 06/09/19 12:19 Freq: NEEDED Status: Active Protocol: Document 06/09/19 10:02 AB (Rec: 06/09/19 12:33 AB [email or web address]) Orientation Orientation/Cognition Level of Alertness Alert Orientation Name,Place,Situation Language Function Ability Hard of Hearing Safety Awareness Decreased Safety Awareness Memory Description Short Term Impaired Gross Range of Motion Lower Extremity ROM Assessment Right Impaired Impairments R knee flexion 90 de R knee extension lacking 15 deg to O Strength Lower Extremity Strength Assessment Right Impaired Knee 3+/5 Sensation Assessment Sensation Gross Sensation WNL Muscle Tone Muscle Tone WNL Yes M6 PT-IP Treatment Start: 06/09/19 12:19 Freq: NEEDED Status: Active Protocol: Document 06/10/19 11:25 GGD (Rec: 06/10/19 12:48 GGD [id number]) Physical Therapy Treatment Exercises Exercises Ankle Pumps,Quad Sets,Seated Knee Flexion/Extension M7 PT-IP Assessment and Plan Start: 06/09/19 12:19 Freq: NEEDED Status: Active Protocol: Document 06/10/19 11:25 GGD (Rec: 06/10/19 12:48 GGD [id number]) PT Summary Assessment and Plan Summary Assessment Summary Pt is progressing slowly. She was able to progress gait distance, but needed cues for gait pattern. Pt will need stair training before D/C home . Frequency of Treatment Frequency Of Treatment Twice a Day Treatment Plan Physical Therapy Treatment Plan Bed Mobility Training,Transfer Training,Gait Training, Therapeutic Exercise,Balance Retraining,Post Op Education, Discharge Planning,Hot or Cold Pack,Neuromuscular Re-ed, Coordination Retraining,Manual Therapy Other Recommendations and Next Treatment ambulation, stair climbing Focus Recommendations To Nursing Amount of Assist Needed 1 Person Assist Discharge Recommendations PT Discharge Recommendations Home with Assistance, Outpatient PT
--- NOTE | 2019-06-10 13:56 | PC.NURSE ---
Pulled Pts Hemovac with less than 5cc of bloody drainage. Pt is taking 10mg of oral percolone for discomfort and has been helpful. R.knee dressing with aquacel. CMS wnl and pt is napping now.
--- NOTE | 2019-06-10 15:15 | PT.IPTN ---
Current Diagnoses Unilateral primary osteoarthritis, right knee (06/08/19) Surgery Performed Operation Date: 06/08/19 10:45 Actual Procedures p Total Knee Arthroplasty - Patito Yañez MD Physical Therapy Treatment Note M2 PT-IP Current Condition Start: 06/09/19 12:19 Freq: NEEDED Status: Active Protocol: Document 06/09/19 10:02 AB (Rec: 06/09/19 12:33 AB [email or web address]) Physical Therapy Current Condition Current Condition Evaluation Date 06/09/19 Treatment Diagnosis s/p R TKA; difficulty in walking Onset Date 06/08/19 Weight Bearing Status Weight Bearing Status Weight Bear as Tolerated M3 PT-IP Subjective Start: 06/09/19 12:19 Freq: NEEDED Status: Active Protocol: Document 06/10/19 15:13 GGD (Rec: 06/10/19 16:18 GGD [id number]) Subjective Physical Therapy Visit Type Type Treatment Note Visit Start Time 14:36 Visit Stop Time 15:15 Total Visit Minutes 38 Number of FISHING TOOL SUPERVISOR Visits 2 Physical Therapy Visit Comments Patient Comments Pt would like to work on stairs. Therapy Pain Assessment Pain When Pain Assessed At Rest Pain Present Pain Present Pain Reported Location Back Intensity 3 Scale Used Numeric (1 - 10) Pain Management Techniques Re-positioning,Timing of Activity with Medications M4 PT-IP Mobility and Gait Start: 06/09/19 12:19 Freq: NEEDED Status: Active Protocol: Document 06/10/19 15:13 GGD (Rec: 06/10/19 16:18 GGD [id number]) PT-Bed Mobility Assessment Supine to Sit Supine to Sit Standby Assistance PT-Transfer Assessment Sit to and From Stand Sit to and from Stand Standby Assistance Equipment Transfer Assistive Device Gait Belt,Front Wheeled Walker Orthotic/Prosthetic Devices or Brace: No Transfers Transfer Destination Chair Transfer Ability Level of Assist Contact Guard Assistance Gait Assessment Gait Gait Assistance Required: Contact Guard Assist Distance (Feet) 80 Able to Maintain Weight Bearing Status Yes During Gait Assistive Devices Assistive Device Gait Belt,Front Wheeled Walker Orthotic/Prosthetic Devices or Brace: No Gait Deviations General Gait Pattern Antalgic,Decreased Stride Length,Decreased Feet Clearance Factors Limiting Gait Function Factors Limiting Gait Function Decreased Activity Tolerance, Decreased Strength,Limited Range of Motion,Pain,Poor Balance Stair Climbing Assessment Evaluation Level of Assist On Stairs Contact Guard Assistance Devices Stair Climbing Assistive Devices Right Railing Technique/Endurance Stair Climbing Direction Ascend and Descend Stair Climbing Technique Step to Step Number of Steps Climbed 3 Stair Climbing Set # Repetitions (reps) 1 M5 PT-IP Objective Assessments Start: 06/09/19 12:19 Freq: NEEDED Status: Active Protocol: Document 06/09/19 10:02 AB (Rec: 06/09/19 12:33 AB [email or web address]) Orientation Orientation/Cognition Level of Alertness Alert Orientation Name,Place,Situation Language Function Ability Hard of Hearing Safety Awareness Decreased Safety Awareness Memory Description Short Term Impaired Gross Range of Motion Lower Extremity ROM Assessment Right Impaired Impairments R knee flexion 90 de R knee extension lacking 15 deg to O Strength Lower Extremity Strength Assessment Right Impaired Knee 3+/5 Sensation Assessment Sensation Gross Sensation WNL Muscle Tone Muscle Tone WNL Yes M6 PT-IP Treatment Start: 06/09/19 12:19 Freq: NEEDED Status: Active Protocol: Document 06/10/19 15:13 GGD (Rec: 06/10/19 16:18 GGD [id number]) Physical Therapy Treatment Exercises Exercises Ankle Pumps,Quad Sets,Heel Slides,Seated Knee Flexion/ Extension M7 PT-IP Assessment and Plan Start: 06/09/19 12:19 Freq: NEEDED Status: Active Protocol: Document 06/10/19 15:13 GGD (Rec: 06/10/19 16:18 GGD [id number]) PT Summary Assessment and Plan Summary Assessment Summary Pt is improving with mobility. Pt was safe and stable with stair mobility. Pt safe for home D/C when medically stable . Frequency of Treatment Frequency Of Treatment Twice a Day Treatment Plan Physical Therapy Treatment Plan Bed Mobility Training,Transfer Training,Gait Training, Therapeutic Exercise,Balance Retraining,Post Op Education, Discharge Planning,Hot or Cold Pack,Neuromuscular Re-ed, Coordination Retraining,Manual Therapy Recommendations To Nursing Amount of Assist Needed Standby Assistance Discharge Recommendations PT Discharge Recommendations Home with Assistance, Outpatient PT
[2019-06-10] MEDS: LOVASTATIN 20 MG TABLET PO (17:56)
[2019-06-10] MEDS: CYCLOBENZAPRINE 10 MG TABLET 5 MG PO (20:12)
[2019-06-10] MEDS: FLUoxetine 20 MG CAPSULE PO (22:24)
[2019-06-11] MEDS: OXYCODONE IR 10 MG TABLET PO (00:30)
[2019-06-11 00:50] VITALS: BP 139/84; PULSE 84; RESP 18; TEMP 36.8; O2SAT 95
[2019-06-11 06:37] VITALS: BP 143/79; PULSE 87; RESP 18; TEMP 36.8; O2SAT 94
[2019-06-11 08:20] VITALS: BP 136/71; PULSE 90; RESP 18; TEMP 36.7; O2SAT 93
[2019-06-11] MEDS: DOCUSATE 100 MG CAPSULE PO (09:04)
[2019-06-11] MEDS: ASPIRIN EC 81 MG TABLET PO (09:04)
[2019-06-11] MEDS: ACETAMINOPHEN 325 MG TABLET 975 MG PO (09:05)
[2019-06-11] MEDS: FLUoxetine 20 MG CAPSULE 40 MG PO (09:05)
[2019-06-11] MEDS: PANTOPRAZOLE 20 MG TABLET PO (09:05)
--- NOTE | 2019-06-11 09:43 | PC.NURSE ---
Pt given 10mg of oxycodone, she states that her pain to r.knee replacement is a 6/10. Up with 1 PA. Dressing with aquacel in place and dry. waiting to take patient home today. She will be discharged.
== END 2019-06-11 11:47 | disposition home or self-care (01) ==
LOC: AC 06-11 11:08 → OR 06-12 08:53 → AC 06-12 08:55 → OR 06-12 08:55
PROVIDERS: Admitting Provider Orthopaedic Surgery; Family Provider Nurse Practitioner Family; PCP Nurse Practitioner Family; Visit Provider Orthopaedic Surgery
PROC: (CPT 27447; principal; 2019-06-08 10:45)
DX: M17.11 Unilateral primary osteoarthritis, right knee (principal); G89.18 Other acute postprocedural pain; E66.01 Morbid (severe) obesity due to excess calories; M81.0 Age-related osteoporosis without current pathological fracture; E78.5 Hyperlipidemia, unspecified; G43.909 Migraine, unspecified, not intractable, without status migrainosus; K21.9 Gastro-esophageal reflux disease without esophagitis; F32.9 Major depressive disorder, single episode, unspecified
CPT/HCPCS: 27447; 36415; 64445; 73560; 85014; 85018; 94760; 97110; 97116; 97161; 97530; C1776; G0378; C9290; J0690; J1100; J1170; J2250; J2274; J2405; J2704; J3010

== ENCOUNTER 2024-07-06 08:26 | Day surgery (SDC) | payer OTHER, SELFPAY ==
[2019-06-08 16:15] VITALS: BMI 32.0
[2024-06-30 08:33] VITALS: BMI 32.5
[2024-07-06] VITALS (9 sets, daily range): BP systolic 132–152; BP diastolic 57–86; PULSE 53–79; RESP 12–18; TEMP 36.2–36.9; O2SAT 96–100; BMI 32.5
--- NOTE | 2024-07-06 06:00 | DI.RAD.S_ITS ---
PROCEDURE: XR KNEE LT 1TO2V INDICATIONS: TKA TECHNIQUE: 2 view(s) of the knee acquired. COMPARISON: [facility] Neri Valdez, CR, XR KNEE 4+ VIEWS LEFT, 03/16/2024, 9:06. FINDINGS: Bones: Expected appearance of the knee arthroplasty. Soft tissues: Patellar resurfacing and postsurgical changes. IMPRESSION: Expected postoperative appearance of the knee arthroplasty. Dictated by: Clark Sabillon M.D. on 07/06/2024 at 16:10 Approved by: Clark Sabillon M.D. on 07/06/2024 at 16:10
[2024-07-06] MEDS: LACTATED RINGERS 1,000 ML 42 ML IV ×2 (09:25→12:20)
[2024-07-06] MEDS: ACETAMINOPHEN 325 MG TABLET 975 MG PO (09:25)
[2024-07-06] MEDS: VANCOMYCIN 1,000 MG/200 ML PIGGYBACK 200 MG IV (09:35)
--- NOTE | 2024-07-06 10:28 | PM.PREOP ---
Pre-operative Note Interval Note History & Physical reviewed/Exam performed by Physician: Yes Changes to H&P: No
--- NOTE | 2024-07-06 10:28 | PM.OP.1 ---
Operative Date/Time/Diagnoses Date of procedure: 07/06/24 Time of procedure: 10:29 Pre-op diagnosis: Severe left knee OA Post-op diagnosis: same Procedure & Clinicians Procedure: Left total knee arthroplasty Same procedure as scheduled: Yes Indications: The patient has had progressively worsening left knee pain with radiographic changes consistent with arthritis. Non-operative management has failed and the patient has requested total knee replacement. The risks, benefits and alternatives to surgery were discussed with the patient prior to proceeding. Risks discussed included, but were not limited to, failure to relieve pain, stiffness, infection, nerve damage, deep venous thrombosis, pulmonary embolism, stroke, coma, heart attack, permanent paralysis and , as well as the potential need for eventual revision of the prosthetic. Surgeon: Patito Yañez Car Servicer: Mart Morales Anesthesia Type: General and Spinal Operative Notes Findings: Severe left knee OA, adequate stability, adequate bone Closure Type: primary Specimen(s): none sent Prosthetic devices, grafts, tissues, transplants, or devices: Yañez and nephgiselle sharpe BCS2 size 3 femur, size 1 tibia, +9 poly, 35 x 7-1/2 thickness patella Estimated Blood Loss (mL): 250 Blood products transfused: none Tourniquet time (min): 79 Procedure in detail: The patient was seen in the pre-operative area, where the patient identified the left knee as the operative site and this was marked with my initials. The patient received pre-operative antibiotics, and was taken to the operating room and placed on the operative table in the supine position. After satisfactory anesthesia, a multimedia services coordinator out was performed. The left leg was encircled with a tourniquet about the proximal thigh, and the leg was prepared from the toes to the tourniquet with ChloroPrep in the usual fashion and draped through sterile drapes. The leg was elevated and exsanguinated with Eschmark bandage and the tourniquet inflated to [250] mmHg pressure. A PA was used during the procedure was essential for intraoperative retraction and safe implantation of the components. The knee was approached through an approximately 18 cm incision centered over the patella and carried into the knee through a medial parapatellar arthrotomy. Portion of the medial and lateral meniscus was resected. Soft tissue was carefully mobilized around the patella the patella was measured with a caliper. Bone was resected from the patella and the patellar height was reconstituted with up an appropriate sized patellar component. A cover was then placed on the patella. A small amount of additional medial and lateral meniscus was resected. Pins were placed for Cori robotic assisted navigation. A plan was carefully taken of the distal femur and the tibia range of motion and stability was checked. A plan that optimized range of motion and stability was developed. The Cori robotic bur was used for the distal femoral resection. It looked like an appropriate distal femoral cut and the cut was made without difficulty. The rotation was assessed and the appropriate size femoral guide was placed on the distal femur and finishing cuts were made. There was no evidence of notching. The anterior, posterior and chamfer cuts were then made. The posterior osteophytes and soft tissues were then removed. The posterior capsule was injected with part of a mixture of 60 ml 0.25% Marcaine mixed with 20 ml Exparel for post operative pain control. The remainder of this mixture was injected into the capsule and subcutaneous tissues during cement curing. The tibial guide was carefully adjusted and navigated in order to optimize the tibial cut. The patient was placed in extension residual medial and lateral meniscus as well as any residual bone was carefully resected. [No] additional tibia was resected. Hemostasis was achieved especially posteriorly. Additional local was injected into the posterior capsule. The extension gap was assessed. The femoral component was trial was placed and the notch was finished. Trial tibial and femoral components were then placed and the knee placed through a range of motion. Range of motion was [0-130], with good stability throughout the range. The trials were then removed, and the tibia was finished. The bone was prepared with pulsatile lavage, and dried with a sponge. Cement was applied and the final prosthetics placed. Excess cement was removed during and after cement curing. A brief Betadine soak was performed. After confirming there was no extruded cement posteriorly, the final tibial insert was placed. The knee was copiously irrigated and the tourniquet deflated. Hemostasis was obtained with the Bovie cautery. The capsule was closed with interrupted # 1 Vicryl suture. The subcutaneous layer was closed with barbed sutures, and the skin with a running 3-0 V-Lock suture and Surgical glue. An Aquacel Ag dressing was applied and the patient was taken to recovery having tolerated the procedure well. Complications: none Post-operative Condition: stable Disposition: Acute Care Plan for aftercare: The patient will be maintained on a standard total knee replacement protocol with weight bearing as tolerated. The patient will receive aspirin and sequential compression devices for DVT prophylaxis. The patient will be discharged home when safe for the home environment.
[2024-07-06] MEDS: CEFAZOLIN 2 GM/100 ML PREMIX 100 ML IV ×2 (11:42→21:00)
[2024-07-06] MEDS: TRANEXAMIC ACID 1,000 MG VIAL 1000 MG INJ ×2 (11:43→13:18)
--- NOTE | 2024-07-06 11:49 | SUR.OPER ---
Supine on padded OR bed. Pillow under head, arms secured on padded armboards <90 degree abduction. Safety belt across torso. Non-operative leg secured with tape over blanket over lower leg. Operative leg secured in DeMayo/Anthony/Nathe positioner. Foam padded brace at thigh of operative leg.
[2024-07-06] MEDS: BUPIVACAINE 0.25% (PF) 60 ML, EPINEPHrine 0.3 MG INJ (11:57)
[2024-07-06] MEDS: BUPIVACAINE LIPOSOME 266 MG/20 ML VIAL INJ (11:58)
[2024-07-06] MEDS: ONDANSETRON 4 MG/2 ML INJ IV (14:36)
[2024-07-06] MEDS: LACTATED RINGERS 1,000 ML 100 ML IV (14:36)
[2024-07-06] MEDS: ACETAMINOPHEN 325 MG TABLET 650 MG PO (15:34)
[2024-07-06] MEDS: OXYCODONE IR 5 MG TABLET PO ×3 (15:35→21:03)
--- NOTE | 2024-07-06 16:26 | PT.IIE ---
Current Diagnoses Unilateral primary osteoarthritis, left knee (07/06/24) Surgery Performed Operation Date: 07/06/24 10:45 Actual Procedures p Total Knee Arthroplasty - Robot(Left) - Patito Yañez MD Surgical History (Last Updated 06/30/24 @ 09:47 by Kristy Hernandez, RN) Cataract extraction status H/O: hysterectomy History of bunionectomy of left great toe History of section History of total right knee replacement (06/2019) Hx of appendectomy Hx of arthroscopy of right knee Hx of cholecystectomy (~1998) Hx of tonsillectomy S/P thyroid biopsy (~2015) Status post trigger finger release Medical History (Last Updated 06/30/24 @ 09:45 by Kristy Hernandez, CLARK) Amputated toe of left foot Anxiety Anxiety and depression Arthritis Enlarged thyroid (~2015) GERD (gastroesophageal reflux disease) Hammertoe of left foot History of COVID-19 (2020) HLD (hyperlipidemia) Kidney stones Numbness Osteoporosis Pneumonia Tuberculosis Physical Therapy Inpatient Evaluation/Re-Eval M1 PT/OT-IP Prior Functional Status Start: 07/06/24 16:49 Freq: NEEDED Status: Active Protocol: Document 07/06/24 16:26 DLM (Rec: 07/06/24 17:05 DLM [id number]) Medical Review Prior Functional Status Medical History Reviewed Yes Diet/Fluid Consistency Regular Communication glasses Mobility and Gait Independent without device Activities of Daily Living and IADL's Independent, drives Prior Functional Level (Other details) does not drive She has a hx of tremors related to her headache medication. Social History Household Members spouse Living Arrangements Apartment/Condo Number of Floors (Floors) One Floor Number of Stairs To Enter/Railing? elevator Home Environment High Toilet,Walk in Shower,Tub /Shower,Built-In Shower Seat Home Equipment Front Wheel Walker,Four Wheel Walker,Straight Cane,Hand Held Shower,Grab Bars Near Toilet, Grab Bars In Shower Employment Status Retired Additional Social History Comment lives in 55+ community she signed up with dial-a-ride to have rides to out-pt PT after surgery M2 PT-IP Current Condition Start: 07/06/24 16:49 Freq: NEEDED Status: Active Protocol: Document 07/06/24 16:26 DLM (Rec: 07/06/24 17:05 DLM [id number]) Physical Therapy Current Condition Current Condition Evaluation Date 07/06/24 Treatment Diagnosis left TKA Onset Date 07/06/24 M3 PT-IP Subjective Start: 07/06/24 16:49 Freq: NEEDED Status: Active Protocol: Document 07/06/24 16:26 DL (Rec: 07/06/24 17:05 [facility] [id number]) Subjective Physical Therapy Visit Type Type Initial Evaluation Visit Start Time 15:55 Visit Stop Time 16:26 Notes 31 minutes Number of PRE OWNED SALES MANAGER Visits 0 Physical Therapy Visit Comments Patient Comments She reports her tremors are about normal for her. She does not feel safe to go home tonight. Patient Goals Discharge home with support of Spouse and local family Therapy Pain Assessment Pain When Pain Assessed At Rest Pain Present Pain Present Pain Reported Location Left Knee Intensity 7 Scale Used Numeric (0 - 10) Description Aching,Tender,Tightness,With Movement Pain Behaviors Facial Grimacing,Guarding, Wincing Pain Management Techniques Apply Cold,Elevation, Modification of Treatment,Re- positioning,Timing of Activity with Medications M4 PT-IP Mobility and Gait Start: 07/06/24 16:49 Freq: NEEDED Status: Active Protocol: Document 07/06/24 16:26 DL (Rec: 07/06/24 17:05 [facility] [id number]) PT-Bed Mobility Assessment Supine to Sit Supine to Sit Standby Assistance Scooting Scooting to Edge of Bed Standby Assistance PT-Transfer Assessment Sit to and From Stand Sit to and from Stand Contact Guard Assistance, Minimal Assistance,Use of Upper Extremities Equipment Transfer Assistive Device Gait Belt,Front Wheeled Walker Transfers Transfer Destination Chair,Bedside Commode Transfer Technique Stand Step Pivot Transfer Ability Level of Assist Contact Guard Assistance, Minimal Assistance,Use of Upper Extremities Comments Mobility Comments pt up to bedside commode to urinate then up to recliner, she could not progress to gait today, pt left up in recliner with nursing aware Gait Assessment Comments Gait Comments she reports increased pain weight bearing on left LE to take functional steps Stair Climbing Assessment Comments Stair Climbing Comments no stairs at home PT-Balance Assessment Sitting Balance and Reactions Static Sitting Balance Ability Normal Dynamic Sitting Balance Ability Good Standing Balance and Reactions Static Standing Balance Ability Good Dynamic Standing Balance Ability Fair Device Used FWW M5 PT-IP Objective Assessments Start: 07/06/24 16:49 Freq: NEEDED Status: Active Protocol: Document 07/06/24 16:26 DLM (Rec: 07/06/24 17:05 [facility] [id number]) Orientation Orientation/Cognition Level of Alertness Alert Orientation Name,Age,Birthday,Month,Date, Year,Day of Week,Place, Situation Language Function Ability No Deficits Noted Safety Awareness Understands Safety Issues Memory Description No Deficits Noted Comments pt placed glasses on Gross Range of Motion Upper Extremity ROM Assessment Within Functional Limits Lower Extremity ROM Assessment Left Impaired Impairments post-op knee pain, tolerates full extension in supine, tolerates 50 degrees knee flexion sitting Strength Upper Extremity Strength Assessment Within Functional Limits Lower Extremity Strength Assessment Left Impaired Hip able to lift LE off bed with extension lag Knee pain limits active use, knee ext sitting 2-/5 Ankle DF 4+/5 Coordination Assessment Assessment Coordination Comments mild tremors throughout, moderate tremor in jaw area Sensation Assessment Sensation Gross Sensation Left LE Impaired Sensation Description Numbness Comments Sensation Comments post-op numbness left LE Muscle Tone Muscle Tone WNL Yes M6 PT-IP Treatment Start: 07/06/24 16:49 Freq: NEEDED Status: Active Protocol: Document 07/06/24 16:26 DLM (Rec: 07/06/24 17:05 [facility] [id number]) Physical Therapy Treatment Exercises Exercises Ankle Pumps,Seated Knee Flexion/Extension Education Education Provided Precautions,Weight Bearing Status,Safety Other Treatments Other Treatment Performed vital signs sitting up in recliner: BP 142/58 and HR56, O2 sat 95% M7 PT-IP Assessment and Plan Start: 07/06/24 16:49 Freq: NEEDED Status: Active Protocol: Document 07/06/24 16:26 DLM (Rec: 07/06/24 17:05 [facility] [id number]) PT Summary Assessment and Plan Potential Rehabilitation Potential Good Status of Condition at Evaluation Evolving Summary Impairments Pain,ROM,Strength,Balance,Bed Mobility,Transfers,Gait, Activity Tolerance Assessment Summary Humera is alert and willing to participate in Physical Therapy today. She did not have any light-headedness nor dizziness when up this visit. She gradually progressed to transfers to the bedside commode to urinate and up to the recliner. She was not able to progress to functional gait this visit with increased pain with weight bearing. Pt left sitting in the recliner with nursing aware and her needs close. Pt wants to discharge home with her family to help when she is medically stable. She is not safe to discharge home today due to her inability to ambulate. Her nurse was notified. Will work towards possible discharge tomorrow based on her progress in therapy. Goals Bed Mobility Goal Independent Transfer Goal Independent,Front Wheeled Walker Gait Goal Independent,Front Wheel Walker Gait Distance 150 feet Days to Meet Goals 2 Frequency of Treatment Frequency Of Treatment Twice a Day Treatment Plan Physical Therapy Treatment Plan Bed Mobility Training,Transfer Training,Gait Training, Therapeutic Exercise,Balance Retraining,Post Op Education, Discharge Planning,Hot or Cold Pack,Neuromuscular Re-ed Precautions Other Precautions fall risk post-op Weight Bearing Status Weight Bearing Status Weight Bear as Tolerated Allowed Weight Bearing Amount (enter % left LE or #) (%) Recommendations To Nursing Amount of Assist Needed 1 Person Assist Discharge Recommendations PT Discharge Recommendations Home with Assistance, Outpatient PT Other Discharge Recommendations not safe to go home yet, possibly tomorrow Transportation Needs at Discharge Private Vehicle
[2024-07-06] MEDS: ASPIRIN EC 81 MG TABLET PO (21:03)
[2024-07-06] MEDS: FAMOTIDINE 20 MG TABLET PO (21:03)
[2024-07-06] MEDS: ATORVASTATIN 20 MG TABLET 10 MG PO (21:04)
[2024-07-06] MEDS: DOCUSATE 100 MG CAPSULE PO (21:04)
[2024-07-07] MEDS: OXYCODONE IR 5 MG TABLET PO ×4 (02:38→15:42)
[2024-07-07] MEDS: ACETAMINOPHEN 325 MG TABLET 650 MG PO ×3 (02:39→15:42)
[2024-07-07] MEDS: TIZANIDINE 4 MG TABLET 1 MG PO ×2 (02:41→11:08)
[2024-07-07] MEDS: ONDANSETRON 4 MG ODT PO (02:42)
[2024-07-07] MEDS: CEFAZOLIN 2 GM/100 ML PREMIX 100 ML IV (04:42)
[2024-07-07 07:45] LABS: Hematocrit 34.5 % (36-46); Hemoglobin 11.7 g/dL (12.0-16.0)
--- NOTE | 2024-07-07 08:01 | PM.PNPO.1 ---
Subjective Subjective Interval history: Humera is a pleasant 69 year old female who is POD#1 s/p L TKA by Dr. Daniel. This morning patient reports that she is doing better, she reports she was having some intense pain last night but once she got a muscle relaxant her pain significantly improved. Patient lives at home with her who is willing and able to aid in her post-op care. Still has not worked w/ PT and expresses anxiety about going home w/o being able to mobilize well. Denies fever, chills, chest pain, SOB, nausea, vomiting. Exam Vital Signs (past 8 hours): Oxygen Delivery Method Room Air Oxygen Flow Rate 0 Narrative Exam Narrative: Patient lying in bed during our interview today. No acute distress. 5/5 strength with left DF, EHL. 4/5 strength w/ left PF. Gross sensation intact throughout bilateral lower extremities. Calves soft and non-tender bilaterally. SCDs are on and functioning. Brisk capillary refill, pulses intact. Post-surgical Aquacel dressing clean, dry and intact over the left knee without drainage. Objective Labs 07/07/24 06:30 Labs: Laboratory Results - last 24 hr 07/07/24 06:30 Hgb 11.7 L Hct 34.5 L PFSH Medical History (Updated 06/30/24 @ 09:45 by Kristy Hernandez RN) Tuberculosis History of COVID-19 (2020) Osteoporosis Amputated toe of left foot Anxiety and depression Anxiety Arthritis Hammertoe of left foot Enlarged thyroid (~2015) GERD (gastroesophageal reflux disease) HLD (hyperlipidemia) Pneumonia Numbness Kidney stones Surgical History (Updated 06/30/24 @ 09:47 by Kristy Hernandez RN) History of total right knee replacement (06/2019) Cataract extraction status History of bunionectomy of left great toe Status post trigger finger release Hx of arthroscopy of right knee Hx of tonsillectomy S/P thyroid biopsy (~2015) H/O: hysterectomy History of section Hx of appendectomy Hx of cholecystectomy (~1998) Social History household members: spouse Smoking Status: Never smoker alcohol intake: never Assessment & Plan Post-op Postoperative Procedures: Procedures Operation Date: 07/06/24 10:45 Actual Procedure Side Surgeon p Total Knee Arthroplasty - Robot Left Patito Yañez MD Postoperative plan narrative: 1) Plan to discharge to home today or tomorrow w/ pending mobility progression w/ PT today. 2) Continue multimodal pain management with ice to the knee for additional pain control. 3) ASA b.i.d. for DVT prophylaxis. 4) Start outpatient physical therapy to work on range of motion and mobility 5) Keep dressing intact, clean, dry until 2 week postop appointment. No soaking the incision site in pools or tubs. No topical ointments or creams to the incision site. 6) Follow up at [facility] orthopedics in 2 weeks for a postop appointment and wound check. All patient's questions were answered, they demonstrates understanding and are in agreement with the plan. Call our office if any questions or concerns arise. Quality VTE Deep Vein Thrombosis/Pulmonary Embolism Present on Admission: No
[2024-07-07] MEDS: polyethylene glycoL 3350 17 GM POWD.PACK PO (08:09)
[2024-07-07] MEDS: DULOXETINE 30 MG CAPSULE 60 MG PO (08:09)
[2024-07-07] MEDS: ASPIRIN EC 81 MG TABLET PO (08:09)
[2024-07-07] MEDS: FAMOTIDINE 20 MG TABLET PO (08:10)
[2024-07-07] MEDS: DIVALPROEX ER 250 MG TAB 500 MG PO (08:10)
[2024-07-07] MEDS: DOCUSATE 100 MG CAPSULE PO (08:10)
--- NOTE | 2024-07-07 08:44 | CM.DANOTE ---
Addendum entered by TRACY Neal 07/07/24 15:38: Per RN, pt has questions about HH. Per PT/OT evals/notes, mobilizing above criteria for HH at this time. RECORD TABULATING CLERK met with pt in room. Updated pt on requirements for HH, pt thought that HH was more of CGs in the home (sister and dtr have [facility] CGs). RECORD TABULATING CLERK updated pt that HH is more PT/OT/nursing needs. Pt report understanding. Report that spouse is at home to assist her and that sister is on her way to take her home. Deny other needs at this point. WILLAM Original Note: B DCP Assessment Note Pt is a 69yo F here following planned left knee surgery with Dr. Yañez, pt is POD1. PCP Meri Simpson [facility] and Self pay RECORD TABULATING CLERK reviewed EMR. Per PT eval, rec home with assistance. Per chart, pt lives in [place] with spouse Kevin ([phone]). Home DME: FWW/4WW, cane, grab bars, elevator, and one floor. Normally indep/drives at baseline, has already set up rides to take her to OP f/u appts. Per chart review, anticipate home today with spouse support. P: no identified barriers to safe dc home at this time from chart review. OP f/u recommended. CM team will continue to follow as needed TRACY Neal Discharge Planning/Care Management CM Discharge Assessment Start: 07/07/24 08:42 Freq: Status: Active Protocol: Document 07/07/24 08:42 (Rec: 07/07/24 08:44 [id number]) Discharge Planning Assessment Assigned Patrol Driver TRACY Hancock DPOA/Assigned Designee Name destiny Brownchaneljeremy Contact Information [phone] Advance Directives? No Advance Directives on File No History Provided By Patient Prior Living Arrangements Apartment/Condo Household Members spouse Type of transporation used prior to Drives own vehicle admit Independent with ADL's Yes Is patient alert and oriented? Yes DME Already Rented / Owned FWW / Walker Comment N/A Patient/Family Preference OP PT Therapy Barriers to Discharge No Discharge Plan Home Referrals Initiated None needed Review Status In Process Please Provide Date Initial DC 07/07/24 Assessment Was Performed Next Review Type Continued Stay Review Pre-Anesthesia Assessment Start: 06/30/24 08:33 Freq: Status: Active Protocol: Document 06/30/24 08:33 LB (Rec: 06/30/24 09:42 LB [id number]) Pre-Anesthesia Assessment Patient Information Reviewed Via Phone Assessment Assessment Completed With Patient Diagnostic Results BMP/CMP,CBC,EKG Comment 06/15/24 outside labs. Primary Care Provider Meri Blackman Medical Clearance Received Not Applicable Seen Specialist in Last 12 Months Yes Specialist Seen Orthopedist Primary Language Algerian Preferred Language Algerian Repairer Hairspring Required No Height 139.7 cm Weight 63.503 kg Body Mass Index (BMI) 32.5 Hearing Ability Normal Visual Assist Glasses Dentition Type Partial- Upper Barriers to Learning None Other Aids No Hx Anesthesia Reactions No Hx Family Anesthesia Reaction No Hx Malignant Hyperthermia No Hx Blood Transfusions No Anesthesia Review Requested No Seaman Officer No alcohol intake never Smoking Status Never smoker Substance Use Type does not use Pain Present Pain Reported Comment back pain. Musculoskeletal Symptoms Arthralgias,Back Pain, Difficulty Walking,Joint Pain, Neck Pain History of Falling (Recent or History of Yes ) Comment 04/26 - no injury. Patient is completely paralyzed or No completely immobile Mental Status Oriented to own ability Comment Will bring walker. Is patient on oxygen? No Does patient have MANUEL/SOB Yes: With over exertion Hx Sleep Apnea No CPAP/BIPAP use not prescribed Currently Taking a Beta Henny No Can You Climb a Flight of Stairs Without No SOB Hx Chest Pain No Hx SOB Yes: With over exertion Hx Syncope or Dizziness No Anti-Coagulant Therapy No Has a Manager Student Services No Cardiac Testing Yes: EKG 06/15/24 Hx Pacemaker/ICD No Cardiac Clearance Received Not Applicable Dysphagia Yes Gastrointestinal Symptoms Reflux Comment With pills. Bladder Pattern Incontinent, Stress,Urgency Urinary Catheter Present No Hx Urinary Self Catheterization No Comment Morning times. Diabetes No HgbA1C 5.9 Date 06/15/24 Patient No Lactating No Hx Drug Resistant Organism No Presence of External or Internal Medical Yes: right knee. Devices Have you had any close contact with No someone diagnosed with COVID-19? Are you experiencing any of these No symptoms symptoms? Received a COVID vaccine? Yes Received all doses? Yes Marital Status Lives With spouse Current Living Arrangements Apartment/Condo Number of Stairs To Enter/Railing? Ramps and elevator. Support System Friend(s),Spouse Does the Patient Have Assistance After Yes Surgery Patient Discharge Plan Description Return Home Additional comment Advised same day surgery. Do You Have Any Spiritual Beliefs That No May Affect Your HC Choices? Do You Have Any Cultural Practices That No May Affect Your HC Choices? Emergency Contact Name Kevin Anders - Emergency Contact Advance Directives? No Advance Directives on File No Power of Potato Chip Frier Name Kevin Anders - Power of Potato Chip Frier PAC Instructions Assistance for 24 hours post- op,Do not shave/clip surgical site,Durable medical equipment ,Medications to take/avoid,No ETOH/petroleum product on skin DOS,NPO,Pre-surgical wash, Sensory aids,Sturdy shoes/ comfortable clothes,Do not bring valuables and remove jewelry
--- NOTE | 2024-07-07 09:00 | PT.IPTN ---
Current Diagnoses Unilateral primary osteoarthritis, left knee (07/06/24) Surgery Performed Operation Date: 07/06/24 10:45 Actual Procedures p Total Knee Arthroplasty - Robot(Left) - Patito Yañez MD Physical Therapy Treatment Note M2 PT-IP Current Condition Start: 07/06/24 16:49 Freq: NEEDED Status: Active Protocol: Document 07/06/24 16:26 DLM (Rec: 07/06/24 17:05 DLM [id number]) Physical Therapy Current Condition Current Condition Evaluation Date 07/06/24 Treatment Diagnosis left TKA Onset Date 07/06/24 M3 PT-IP Subjective Start: 07/06/24 16:49 Freq: NEEDED Status: Active Protocol: Document 07/07/24 09:28 TS (Rec: 07/07/24 09:38 TS [id number]) Subjective Physical Therapy Visit Type Type Treatment Note Visit Start Time 09:00 Visit Stop Time 09:18 Number of PHYSICAL THERAPY MANAGER Visits 1 Physical Therapy Visit Comments Patient Comments Pt reports being tired, feeling weak and did not sleep well last night. She is somewhat lethargic and requests back to bed. Her BP is low at 87/48. Therapy Pain Assessment Pain When Pain Assessed At Rest Pain Present Pain Present Pain Reported M4 PT-IP Mobility and Gait Start: 07/06/24 16:49 Freq: NEEDED Status: Active Protocol: Document 07/07/24 09:28 TS (Rec: 07/07/24 09:38 TS [id number]) PT-Bed Mobility Assessment Sit to Supine Sit to Supine Standby Assistance PT-Transfer Assessment Sit to and From Stand Sit to and from Stand Contact Guard Assistance,1 Person Assistance,Use of Upper Extremities Equipment Transfer Assistive Device Gait Belt,Front Wheeled Walker Transfers Transfer Destination Bed Transfer Technique Stand Step Pivot Transfer Ability Level of Assist Contact Guard Assistance Comments Mobility Comments STS with FWW CGA, pt demonstrates good carryover of technique. she ambulates ~5' to the bed CGA with use of FWW . Sit to supine into bed SBA. Pt was left in bed to rest, nursing notified. Gait Assessment Gait Gait Assistance Required: Contact Guard Assist Distance (Feet) 5 Assistive Devices Assistive Device Gait Belt,Front Wheeled Walker Orthotic/Prosthetic Devices or Brace: No Gait Deviations General Gait Pattern Antalgic,Decreased Stride Length,Decreased Feet Clearance Factors Limiting Gait Function Factors Limiting Gait Function Decreased Activity Tolerance, Decreased Strength,Poor Balance Stair Climbing Assessment Comments Stair Climbing Comments no stairs at home PT-Balance Assessment Sitting Balance and Reactions Static Sitting Balance Ability Normal Dynamic Sitting Balance Ability Good Standing Balance and Reactions Static Standing Balance Ability Good Dynamic Standing Balance Ability Fair Device Used FWW M5 PT-IP Objective Assessments Start: 07/06/24 16:49 Freq: NEEDED Status: Active Protocol: Document 07/06/24 16:26 DLM (Rec: 07/06/24 17:05 DLM [id number]) Orientation Orientation/Cognition Level of Alertness Alert Orientation Name,Age,Birthday,Month,Date, Year,Day of Week,Place, Situation Language Function Ability No Deficits Noted Safety Awareness Understands Safety Issues Memory Description No Deficits Noted Comments pt placed glasses on Gross Range of Motion Upper Extremity ROM Assessment Within Functional Limits Lower Extremity ROM Assessment Left Impaired Impairments post-op knee pain, tolerates full extension in supine, tolerates 50 degrees knee flexion sitting Strength Upper Extremity Strength Assessment Within Functional Limits Lower Extremity Strength Assessment Left Impaired Hip able to lift LE off bed with extension lag Knee pain limits active use, knee ext sitting 2-/5 Ankle DF 4+/5 Coordination Assessment Assessment Coordination Comments mild tremors throughout, moderate tremor in jaw area Sensation Assessment Sensation Gross Sensation Left LE Impaired Sensation Description Numbness Comments Sensation Comments post-op numbness left LE Muscle Tone Muscle Tone WNL Yes M6 PT-IP Treatment Start: 07/06/24 16:49 Freq: NEEDED Status: Active Protocol: Document 07/07/24 09:28 TS (Rec: 07/07/24 09:38 TS [id number]) Physical Therapy Treatment Education Education Provided Precautions,Weight Bearing Status,Safety M7 PT-IP Assessment and Plan Start: 07/06/24 16:49 Freq: NEEDED Status: Active Protocol: Document 07/07/24 09:28 TS (Rec: 07/07/24 09:38 TS [id number]) PT Summary Assessment and Plan Potential Rehabilitation Potential Good Summary Impairments Pain,ROM,Strength,Balance,Bed Mobility,Transfers,Gait, Activity Tolerance Progress Towards Goals Slow Progress due to Medical Issues,Slow Progress due to Activity Tolerance Assessment Summary Humera is doing well with her mobility but she is limited by low BP and being tired,weak andlethargic this morning. RN believes pain medication could be playing a role. She is CGA for STS form the chair. She ambulates with good/fair balance with use of FWW. she performs bed mobility SBA with no cues. PT is recommending home with assist. Goals Bed Mobility Goal Independent Transfer Goal Independent,Front Wheeled Walker Gait Goal Independent,Front Wheel Walker Gait Distance 150 feet Days to Meet Goals 2 Frequency of Treatment Frequency Of Treatment Twice a Day Treatment Plan Physical Therapy Treatment Plan Bed Mobility Training,Transfer Training,Gait Training, Therapeutic Exercise,Balance Retraining,Post Op Education, Discharge Planning,Hot or Cold Pack,Neuromuscular Re-ed Precautions Other Precautions fall risk post-op Weight Bearing Status Weight Bearing Status Weight Bear as Tolerated Allowed Weight Bearing Amount (enter % left LE or #) (%) Recommendations To Nursing Amount of Assist Needed 1 Person Assist Discharge Recommendations PT Discharge Recommendations Home with Assistance, Outpatient PT Transportation Needs at Discharge Private Vehicle
[2024-07-07 09:20] VITALS: BP 129/52; PULSE 74; RESP 17; TEMP 36.3; O2SAT 95
--- NOTE | 2024-07-07 10:17 | PM.DS.1 ---
History of Present Illness History of Present Illness Date Patient Seen: 07/07/24 Time Patient Seen: 10:17 Chief complaint: OPB Narrative: Operative Date/Time/Diagnoses Date of procedure: 07/06/24 Time of procedure: 10:29 Pre-op diagnosis: Severe left knee OA Post-op diagnosis: same Procedure & Clinicians Procedure: Left total knee arthroplasty Same procedure as scheduled: Yes Indications: The patient has had progressively worsening left knee pain with radiographic changes consistent with arthritis. Non-operative management has failed and the patient has requested total knee replacement. The risks, benefits and alternatives to surgery were discussed with the patient prior to proceeding. Risks discussed included, but were not limited to, failure to relieve pain, stiffness, infection, nerve damage, deep venous thrombosis, pulmonary embolism, stroke, coma, heart attack, permanent paralysis and , as well as the potential need for eventual revision of the prosthetic. Surgeon: Patito Yañez Dental Laboratory Manager: Mart Morales Anesthesia Type: General and Spinal Operative Notes Findings: Severe left knee OA, adequate stability, adequate bone Closure Type: primary Specimen(s): none sent Prosthetic devices, grafts, tissues, transplants, or devices: Yañze and nephew annemarie BCS2 size 3 femur, size 1 tibia, +9 poly, 35 x 7-1/2 thickness patella Estimated Blood Loss (mL): 250 Blood products transfused: none Tourniquet time (min): 79 Discharge Providers Provider Discharge Date: 07/07/24 Primary care physician: AYUSH Treadwell Consults: 07/06/24 06:00 Consult to Anesthesiology Routine Comment: Consulting Provider: Anesthesiologist Reason for consultation: Regional block for post operative pain control 07/06/24 14:08 Consult to Discharge Planning Routine Comment: Consult to Occupational Therapy Evaluate & Treat Comment: Physician Instructions: Evaluate and treat Consult to Physical Therapy Evaluate & Treat Comment: Physician Instructions: postop TKA protocol Discharge provider: Jordyn Richards PA-C Summary Hospital Course Discharge Diagnosis: Severe left knee osteoarthritis, s/p left total knee arthroplasty Hospital Course: On my visit today, Humera is curled in a position on her side and says she doesn't feel well. She doesn't want to make a decision about whether or not to go home today until she speaks with her , who will be her primary people manager. She has worked w/ PT twice and had to stop today when her BP dropped to 80s/40s and she felt weak; she is currently receiving IV fluids. Eating and voiding without difficulty. We discussed that I would go ahead and write discharge paperwork in the event she wants to leave later, but if she is still feeling unwell later today, she can certainly stay. Exam Vital Signs (past 8 hours): - 07/07/24 09:20 Temperature 97.4 F L Pulse Rate 74 Respiratory Rate 17 Blood Pressure 129/52 L Pulse Oximetry 95 Oxygen Flow Rate 0 Oxygen Delivery Method Room Air Oxygen Flow Rate 0 Narrative Exam Narrative: 5/5 hip flexors, quadriceps, hamstrings, PF, DF, EHL on left. Sensation to light touch intact throughout LLE, calf soft and compressible. Aquacel dressing CDI. 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 She should at least stay until after her second PT today. Discharge Plan Discharge Plan Patient Disposition: Home Discharge orders & Medications Discharge Orders: Discharge (Order); Ordered 07/07/24 Ordered By: Jordyn Richards Prescriptions: Continued potassium citrate 10 mEq (1,080 mg) Tablet Extended Release 10 meq PO BID Rx Instructions: qnoon, hs lovastatin 20 mg Tablet 20 mg PO BEDTIME acetaminophen 500 mg Capsule 1,000 mg PO Q8H PRN (Reason: Pain, Moderate) oxycodone 5 mg Tablet 5 mg PO Q3HR PRN (Reason: Pain, Moderate (4-6)) Qty: 30 0RF Patient Comments: for post op 2023. tizanidine 2 mg tablet 1 - 2 mg PO Q8H PRN (Reason: muscle spasm) famotidine 20 mg tablet 20 mg PO BID divalproex 250 mg tablet extended release 24 hr 500 mg PO DAILY duloxetine 60 mg capsule,delayed release(DR/EC) 60 mg PO DAILY ondansetron 4 mg tablet,disintegrating 4 mg PO Q8H PRN (Reason: nausea/vomiting) Follow up/Referrals: Meri Blackman ARNP [Primary Care Provider] - Patito Yañez MD [Physician] - (Follow up at [facility] as scheduled in 2 weeks. ) Diet/Activity/Treatments Diet: Diet as Tolerated Activity: Ambulate multiple times a day. Use baby aspirin BID to prevent blood clot. Cold/Heat Therapy: Use ice multiple times a day for additional pain control. Skin/Wound/Dressing Care Skin care: Okay to shower over Aquacel dressing. Report to your healthcare provider any signs of infection, such as:: chills, fever, night sweats, increased pain, unusual drainage and unusual redness Dressing: Keep dressing intact, clean and dry until 2 week post-op appointment. No soaking the incision site in pools or tubs. No topical ointments or creams to the incision site. Okay to remove Faustino wrap. Visit Report/Discharge Packet Instructions: DI for Knee Replacement, DI for Prescription Opioid Use Stand Alone Forms: Patient Portal/API, Surgery Discharge Discharge Data Primary Care Provider: Meri Blackman Attending Provider: Patito Yañez Quality VTE Deep Vein Thrombosis/Pulmonary Embolism Present on Admission: No
--- NOTE | 2024-07-07 12:20 | OT.IP.EVAL ---
Addendum entered and electronically signed by Zoraida Olivas OT 07/07/24 13:15: esign Original Note: Current Diagnoses Unilateral primary osteoarthritis, left knee (07/06/24) Surgery Performed Operation Date: 07/06/24 10:45 Actual Procedures p Total Knee Arthroplasty - Robot(Left) - Patito Yañez MD Past Medical History (Last Updated 06/30/24 @ 09:45 by Kristy Hernandez, RN) Amputated toe of left foot Anxiety Anxiety and depression Arthritis Enlarged thyroid (~2015) GERD (gastroesophageal reflux disease) Hammertoe of left foot History of COVID-19 (2020) HLD (hyperlipidemia) Kidney stones Numbness Osteoporosis Pneumonia Tuberculosis Surgical History (Last Updated 06/30/24 @ 09:47 by Kristy Hernandez, CLARK) Cataract extraction status H/O: hysterectomy History of bunionectomy of left great toe History of section History of total right knee replacement (06/2019) Hx of appendectomy Hx of arthroscopy of right knee Hx of cholecystectomy (~1998) Hx of tonsillectomy S/P thyroid biopsy (~2015) Status post trigger finger release Occupational Therapy Inpatient Evaluation/Re-Eval M1 PT/OT-IP Prior Functional Status Start: 07/06/24 16:49 Freq: NEEDED Status: Active Protocol: Document 07/07/24 12:54 [facility] (Rec: 07/07/24 13:12 [facility] [id number]) Medical Review Prior Functional Status Medical History Reviewed Yes Diet/Fluid Consistency Regular Communication glasses Mobility and Gait Independent without device Activities of Daily Living and IADL's Independent, drives Prior Functional Level (Other details) does not drive She has a hx of tremors related to her headache medication. Social History Household Members spouse Living Arrangements Apartment/Condo Number of Floors (Floors) One Floor Number of Stairs To Enter/Railing? elevator Home Environment High Toilet,Walk in Shower,Tub /Shower,Built-In Shower Seat Home Equipment Front Wheel Walker,Four Wheel Walker,Straight Cane,Hand Held Shower,Grab Bars Near Toilet, Grab Bars In Shower Employment Status Retired Additional Social History Comment lives in 55+ community she signed up with dial-[employer]-ride to have rides to out-pt PT after surgery Pt states 100ft distance from the car to front door to walk . M2 OT-IP Current Condition Start: 07/07/24 12:54 Freq: Status: Active Protocol: Document 07/07/24 12:54 [facility] (Rec: 07/07/24 13:12 [facility] [id number]) Occupational Therapy Current Condition Current Condition Evaluation Date 07/07/24 Treatment Diagnosis S/P L TKA M3 OT- IP Subjective and Pain Start: 07/07/24 12:54 Freq: Status: Active Protocol: Document 07/07/24 12:54 [facility] (Rec: 07/07/24 13:12 [facility] [id number]) OT- Subjective Occupational Therapy Visit Type Type Initial Evaluation Visit Start Time 11:53 Visit Stop Time 12:20 Occupational Therapy Visit Comments Patient Comments Pt agreed to get up with OT but very tired. Patient/Caregiver Goals Pt concerned about being able to get to and from her outpt PT due to not moving very far yet and possibly considering having home health versus outpt PT. OT Pain Assessment Pain When Pain Assessed During Mobility Pain Present Pain Present Pain Reported Location Left Knee Pain Behaviors Facial Grimacing M4 OT- IP ADL's Start: 07/07/24 12:54 Freq: Status: Active Protocol: Document 07/07/24 12:54 [facility] (Rec: 07/07/24 13:12 [facility] [id number]) OT [id number] General Evaluation Self-Feeding Ability Independent OT ADL-Grooming General Evaluation Grooming Ability Standby Assistance OT ADL-Oral Care Comments Oral Care Comments NOt performed. OT ADL-Dressing General Eval Lower Body Dressing Ability Maximum Assistance Areas Needing Assistance Socks Comments OT Dressing Comments Pt will benefit fROM LB dressing equipment, but states her to assist her. OT ADL-Toileting Comments OT Toileting Comments Pt states gets up 3-4 times for the bathroom at night and suggested use of pads/brief and obtaining a BSC. Educated pt to be mindful of her left knee positioning especially during ADL needs. OT ADL-Bathing Comments OT Bathing Comments Pt will benefit from assist. Educated on showering needs for the dressing. M5 OT- IP IADL's Start: 07/07/24 12:54 Freq: Status: Active Protocol: Document 07/07/24 12:54 [facility] (Rec: 07/07/24 13:12 [facility] [id number]) OT-Instrumental Activities of Daily Living Home Safety Awareness Awareness of Need for Assistance at Home Good Awareness Ability to Problem Solve Emergency Able to Problem Solve Situations Medication Management Medication Management No Deficits Identified Money Management Money Management No Deficits Identified Meal Preparation Meal Preparation Caregiver Provides Assist Construction Foreman Construction Foreman Caregiver Provides Assist M6 OT- IP Functional Cognition Start: 07/07/24 12:54 Freq: Status: Active Protocol: Document 07/07/24 12:54 [facility] (Rec: 07/07/24 13:12 [facility] [id number]) Cognitive Factors Limiting Selfcare Function Cognitive Ability Level of Alertness Alert Patient Orientation Name,Age,Birthday,Month,Date, Year,Day of Week,Place, Situation Attention Span Ability Capable of Focused Attention, Capable of Sustained Attention Ability to Follow Commands Able to Follow One Step Commands Cognitive Comments Cognitive Assessment Comments Pt able to follow commands for ADL and mobility needs. Pt thinking of borrowing her sister's wc for longer distances. OT- Vision and Hearing OT- Vision Assessment Visual Acuity Glasses All The Time Visual Attentiveness WFL Occular Pursuits WFL M7 OT- IP Mobility and Balance Start: 07/07/24 12:54 Freq: Status: Active Protocol: Document 07/07/24 12:54 [facility] (Rec: 07/07/24 13:12 [facility] [id number]) OT-Transfer Assessment Sit to and From Stand Sit to and from Stand Contact Guard Assistance Transfers Transfer Ability Contact Guard Assistance Technique Transfer Destination Chair Transfer Technique Stand Step Pivot Devices Transfer Assistive Devices Gait Belt,Front Wheeled Walker Comments Mobility Comments BP sitting 89/48 and standing 97/51 and 122/56. Pt able to stand with CGA and walk to and from the sink with FWW however very slowly. OT- Balance Assessment Sitting Balance and Reactions Static Sitting Balance Ability Good Dynamic Sitting Balance Ability Good Standing Balance and Reactions Static Standing Balance Ability Good Dynamic Standing Balance Ability Fair M8 OT- IP Objective Assessments Start: 07/07/24 12:54 Freq: Status: Active Protocol: Document 07/07/24 12:54 [facility] (Rec: 07/07/24 13:12 [facility] [id number]) OT Gross Range of Motion Upper Extremity Range of Motion Assessment Within Functional Limits OT Strength Upper Extremity Strength Assessment Within Functional Limits M9 OT- IP Assessment and Plan Start: 07/07/24 12:54 Freq: Status: Active Protocol: Document 07/07/24 12:54 [facility] (Rec: 07/07/24 13:12 [facility] [id number]) OT Summary Assessment and Plan Potential Rehabilitation Potential Good Analytic Complexity at Evaluation Low Summary OT Impairments Pain,Balance,Functional Mobility,Dressing,Toileting, Bathing,Toilet Transfers, Shower Transfers,Activity Tolerance Progress Towards Goals Progressing Toward Goals Assessment Summary Pt low complexity and main barriers are limited activity tolerance and just able to walk to the sink and back versus at home having to walk 100ft to get into her house in addition if taking the bus to her outpt PT appointment will have to walk more. Pt insists her to be able to assist with ADL needs but would benefit from getting LB dressing equipment in addition to a BSC as pt goes 3-4 times at night. Pending progress, pt may initially benefit from home health versus outpt PT. Goals Dressing Goal Minimal Assistance Toileting Goal Independent Bathing Goal Minimal Assistance Toilet Transfer Goal Independent Shower Transfer Goal Standby Assistance Days to Meet Goals 5 Frequency of Treatment Other frequency 5x/week Treatment Plan OT Treatment Plan ADL Training,Functional Mobility,Patient/Family Education,Discharge Planning Discharge Recommendations Home Equipment Needs LB dressing, BSC Transportation Needs at Discharge Private Vehicle
--- NOTE | 2024-07-07 13:25 | PT.IPTN ---
Current Diagnoses Unilateral primary osteoarthritis, left knee (07/06/24) Surgery Performed Operation Date: 07/06/24 10:45 Actual Procedures p Total Knee Arthroplasty - Robot(Left) - Patito Yañez MD Physical Therapy Treatment Note M2 PT-IP Current Condition Start: 07/06/24 16:49 Freq: NEEDED Status: Active Protocol: Document 07/06/24 16:26 DLM (Rec: 07/06/24 17:05 DLM [id number]) Physical Therapy Current Condition Current Condition Evaluation Date 07/06/24 Treatment Diagnosis left TKA Onset Date 07/06/24 M3 PT-IP Subjective Start: 07/06/24 16:49 Freq: NEEDED Status: Active Protocol: Document 07/07/24 13:48 TS (Rec: 07/07/24 13:58 TS [id number]) Subjective Physical Therapy Visit Type Type Treatment Note Visit Start Time 13:25 Visit Stop Time 13:48 Number of TOY MECH[employer]IC Visits 2 Physical Therapy Visit Comments Patient Comments Pt found resting in the chair, i agreeable to PT. Therapy Pain Assessment Pain When Pain Assessed At Rest Pain Present Pain Present Pain Reported M4 PT-IP Mobility and Gait Start: 07/06/24 16:49 Freq: NEEDED Status: Active Protocol: Document 07/07/24 13:48 TS (Rec: 07/07/24 13:58 TS [id number]) PT-Bed Mobility Assessment Sit to Supine Sit to Supine Standby Assistance PT-Transfer Assessment Sit to and From Stand Sit to and from Stand Contact Guard Assistance,1 Person Assistance,Use of Upper Extremities Equipment Transfer Assistive Device Gait Belt,Front Wheeled Walker Orthotic/Prosthetic Devices or Brace: No Comments Mobility Comments BP sitting 112/46, pt reports some lightheadedness. STS with FWW CGA. She ambulates a short distance in the room ~20 'CGA with FWW. She fatigues quickly with gait and reports increased lightheadedness, BP in standing 104/50. Pt requested to use the commode, she perfomrs her own pericare. Sit to supine into bed SBA. Pt was left in the bed, contacting friend about possible w/c to help her into house. Gait Assessment Gait Gait Assistance Required: Contact Guard Assist Distance (Feet) 20 Assistive Devices Assistive Device Gait Belt,Front Wheeled Walker Orthotic/Prosthetic Devices or Brace: No Gait Deviations General Gait Pattern Antalgic,Decreased Stride Length,Decreased Feet Clearance Factors Limiting Gait Function Factors Limiting Gait Function Decreased Activity Tolerance, Decreased Strength,Poor Balance PT-Balance Assessment Sitting Balance and Reactions Static Sitting Balance Ability Good Dynamic Sitting Balance Ability Good Standing Balance and Reactions Static Standing Balance Ability Good Dynamic Standing Balance Ability Fair Device Used FWW M5 PT-IP Objective Assessments Start: 07/06/24 16:49 Freq: NEEDED Status: Active Protocol: Document 07/06/24 16:26 DLM (Rec: 07/06/24 17:05 DLM [id number]) Orientation Orientation/Cognition Level of Alertness Alert Orientation Name,Age,Birthday,Month,Date, Year,Day of Week,Place, Situation Language Function Ability No Deficits Noted Safety Awareness Understands Safety Issues Memory Description No Deficits Noted Comments pt placed glasses on Gross Range of Motion Upper Extremity ROM Assessment Within Functional Limits Lower Extremity ROM Assessment Left Impaired Impairments post-op knee pain, tolerates full extension in supine, tolerates 50 degrees knee flexion sitting Strength Upper Extremity Strength Assessment Within Functional Limits Lower Extremity Strength Assessment Left Impaired Hip able to lift LE off bed with extension lag Knee pain limits active use, knee ext sitting 2-/5 Ankle DF 4+/5 Coordination Assessment Assessment Coordination Comments mild tremors throughout, moderate tremor in jaw area Sensation Assessment Sensation Gross Sensation Left LE Impaired Sensation Description Numbness Comments Sensation Comments post-op numbness left LE Muscle Tone Muscle Tone WNL Yes M6 PT-IP Treatment Start: 07/06/24 16:49 Freq: NEEDED Status: Active Protocol: Document 07/07/24 13:48 TS (Rec: 07/07/24 13:58 TS [id number]) Physical Therapy Treatment Education Education Provided Precautions,Weight Bearing Status,Safety M7 PT-IP Assessment and Plan Start: 07/06/24 16:49 Freq: NEEDED Status: Active Protocol: Document 07/07/24 13:48 TS (Rec: 07/07/24 13:58 TS [id number]) PT Summary Assessment and Plan Potential Rehabilitation Potential Good Summary Impairments Pain,ROM,Strength,Balance,Bed Mobility,Transfers,Gait, Activity Tolerance Progress Towards Goals Slow Progress due to Medical Issues,Slow Progress due to Activity Tolerance Assessment Summary Humera continues to make slow progress with her mobility. She fatigues quickly with gait and continues to report lightheadedness when up and walking, pt ambulated ~20'. She is SBA for bed mobility and requires no cues. Pt has ~ 100' to walk into her house. At this time that would be difficult for the pt and recommended a w/c to help her into the house. PT is recommending home with 24/7 assist and HHPT. Goals Bed Mobility Goal Independent Transfer Goal Independent,Front Wheeled Walker Gait Goal Independent,Front Wheel Walker Gait Distance 150 feet Days to Meet Goals 2 Frequency of Treatment Frequency Of Treatment Twice a Day Treatment Plan Physical Therapy Treatment Plan Bed Mobility Training,Transfer Training,Gait Training, Therapeutic Exercise,Balance Retraining,Post Op Education, Discharge Planning,Hot or Cold Pack,Neuromuscular Re-ed Weight Bearing Status Weight Bearing Status Weight Bear as Tolerated Allowed Weight Bearing Amount (enter % left LE or #) (%) Recommendations To Nursing Amount of Assist Needed 1 Person Assist Discharge Recommendations PT Discharge Recommendations Home with 24/7 Assist Available,Home Health Transportation Needs at Discharge Private Vehicle
== END 2024-07-07 15:55 | disposition home or self-care (01) ==
LOC: OR 08:28 → AC 08:29
PROVIDERS: Family Provider Nurse Practitioner Family; PCP Nurse Practitioner Family; Referring Provider Orthopaedic Surgery; Visit Provider Orthopaedic Surgery
PROC: 0SRD0JZ Replacement of Left Knee Joint with Synthetic Substitute, Open Approach (ICD-10-PCS; CPT 27447; principal; 2024-07-06 10:45)
DX: M17.12 Unilateral primary osteoarthritis, left knee (principal); M25.762 Osteophyte, left knee
CPT/HCPCS: 27447; 36415; 73560; 85014; 85018; 97116; 97162; 97165; 97530; 97535; C1776; A9270; C9290; J0171; J0690; J2405; J2704; J3010